=== PATIENT | male | born 1940 | race Caucasian/White ===

== ENCOUNTER 2021-05-13 22:16 | Inpatient (IN) | payer MEDICARE, OTHER ==
[~2021-05-13] VITALS: Ht 188 cm; Wt 94.1 kg
[2021-05-13] MEDS ORDERED: GABA-282 PO (22:45)
[2021-05-13] MEDS ORDERED: FLOM0.4C39 PO (22:46)
[2021-05-13] MEDS ORDERED: LIDOCAINE 2% 5ML JELLY UROJET TOP ONE (23:05)
[2021-05-13 23:29] LABS: BASO % 0.4 % (0.0-1.0); EOS # 0.1 10^3/uL (0.0-0.5); EOS % 1.2 % (0.0-3.0); HEMATOCRIT 41.4 % (42.0-52.0); HEMOGLOBIN 14.1 g/dl (13.5-17.5); LYMPH # 1.4 10^3/uL (1.5-5.0); LYMPH % 13.2 % (24.0-44.0); MEAN CORPUSCULAR HGB CONC 34.1 g/dl (32.0-36.5); MEAN CORPUSCULAR VOLUME 93.9 fl (80.0-96.0); MONO # 0.9 10^3/uL (0.0-0.8); MONO % 8.4 % (2.0-8.0); NEUTROPHILS # 7.8 10^3/uL (1.5-8.5); NEUTROPHILS % 76.1 % (36.0-66.0); PLATELET COUNT, AUTOMATED 178 10^3/uL (150-450); RED BLOOD COUNT 4.41 10^6/uL (4.30-6.10); WHITE BLOOD COUNT 10.2 10^3/uL (4.0-10.0)
[2021-05-13 23:58] LABS: MB/CK RELATIVE INDEX 1.13 (< OR =4); TROPONIN I 0.04 NG/ML (< 0.10)
[2021-05-14 00:05] LABS: ALBUMIN 3.9 GM/DL (3.2-5.2); ALT/SGPT 38 U/L (12-78); BILIRUBIN,DIRECT 0.5 MG/DL (0.0-0.2); BILIRUBIN,TOTAL 4.6 MG/DL (0.2-1.0); BLOOD UREA NITROGEN 16 MG/DL (7-18); CALCIUM LEVEL 8.3 MG/DL (8.8-10.2); CARBON DIOXIDE LEVEL 30 MEQ/L (21-32); CHLORIDE LEVEL 100 MEQ/L (98-107); CREATININE FOR GFR 1.23 MG/DL (0.70-1.30); GLOMERULAR FILTRATION RATE > 60.0 (>35); GLUCOSE, FASTING 117 MG/DL (70-100); POTASSIUM SERUM 3.7 MEQ/L (3.5-5.1); SODIUM LEVEL 136 MEQ/L (136-145); TOTAL PROTEIN 6.7 GM/DL (6.4-8.2)
[2021-05-14 00:50] LABS: RSV AMPLIFICATION NEGATIVE (NEGATIVE)
[2021-05-14] MEDS ORDERED: PRESCAP PO (01:45)
[2021-05-14] MEDS ORDERED: POLYOPD OU (01:45)
[2021-05-14] MEDS ORDERED: HOME MED LIST COMPLETE! XX SCH (01:50)
[2021-05-14] MEDS ORDERED: ONDANSETRON 4MG/2ML VIAL IV ONE (02:00)
[2021-05-14] MEDS ORDERED: POLYVINYL ALCOHOL OPHTH SOLN 15 ML(LIQUITEARS) OU PRN (03:30)
[2021-05-14] MEDS ORDERED: MOM 30ML SUSPENSION UDC PO PRN (03:50)
[2021-05-14] MEDS: NS 1,000 ML IV SCH ×2 (04:39→13:22)
[2021-05-14] MEDS: ACETAMINOPHEN TAB 650MG DOSE (2X325MG) PO PRN (04:40)
[2021-05-14 05:35] VITALS: BP 147/79
[2021-05-14 07:12] LABS: HEMATOCRIT 39.4 % (42.0-52.0); HEMOGLOBIN 13.7 g/dl (13.5-17.5); MEAN CORPUSCULAR HEMOGLOBIN 32.9 pg (27.0-33.0); MEAN CORPUSCULAR HGB CONC 34.8 g/dl (32.0-36.5); MEAN CORPUSCULAR VOLUME 94.5 fl (80.0-96.0); PLATELET COUNT, AUTOMATED 182 10^3/uL (150-450); RED BLOOD COUNT 4.17 10^6/uL (4.30-6.10); WHITE BLOOD COUNT 10.3 10^3/uL (4.0-10.0)
[2021-05-14 07:42] LABS: ALBUMIN 3.8 GM/DL (3.2-5.2); ALT/SGPT 38 U/L (12-78); BILIRUBIN,TOTAL 5.1 MG/DL (0.2-1.0); BLOOD UREA NITROGEN 16 MG/DL (7-18); CALCIUM LEVEL 8.3 MG/DL (8.8-10.2); CARBON DIOXIDE LEVEL 29 MEQ/L (21-32); CHLORIDE LEVEL 101 MEQ/L (98-107); CREATININE FOR GFR 1.12 MG/DL (0.70-1.30); GLOMERULAR FILTRATION RATE > 60.0 (>35); GLUCOSE, FASTING 104 MG/DL (70-100); SODIUM LEVEL 136 MEQ/L (136-145); TOTAL PROTEIN 6.4 GM/DL (6.4-8.2)
[2021-05-14] MEDS: DOCUSATE SODIUM 100MG CAPSULE PO SCH ×2 (09:08→20:47)
[2021-05-14] MEDS: TAMSULOSIN 0.4 MG CAP PO SCH (09:08)
[2021-05-14 11:15] VITALS: BP_SYST 113; BP_SYST 116; BP_SYST 118; BP_DIAS 48; BP_DIAS 53; BP_DIAS 62
[2021-05-14 14:00] VITALS: BP 123/68
[2021-05-14 22:00] VITALS: BP 138/83
[2021-05-15] MEDS: ACETAMINOPHEN TAB 650MG DOSE (2X325MG) PO PRN ×2 (05:31→20:09)
[2021-05-15 05:57] VITALS: BP 169/81
[2021-05-15 06:58] LABS: HEMATOCRIT 37.9 % (42.0-52.0); MEAN CORPUSCULAR HEMOGLOBIN 32.4 pg (27.0-33.0); MEAN CORPUSCULAR HGB CONC 34.3 g/dl (32.0-36.5); MEAN CORPUSCULAR VOLUME 94.5 fl (80.0-96.0); PLATELET COUNT, AUTOMATED 181 10^3/uL (150-450); RED BLOOD COUNT 4.01 10^6/uL (4.30-6.10); WHITE BLOOD COUNT 9.4 10^3/uL (4.0-10.0)
[2021-05-15 07:34] LABS: ALBUMIN 3.6 GM/DL (3.2-5.2); BILIRUBIN,DIRECT 0.5 MG/DL (0.0-0.2); BILIRUBIN,TOTAL 5.2 MG/DL (0.2-1.0); TOTAL PROTEIN 6.2 GM/DL (6.4-8.2)
[2021-05-15] MEDS: TAMSULOSIN 0.4 MG CAP PO SCH (08:43)
[2021-05-15] MEDS: DOCUSATE SODIUM 100MG CAPSULE PO SCH ×2 (08:43→20:08)
[2021-05-15 14:00] VITALS: BP 166/87
[2021-05-15] MEDS: NS 1,000 ML IV SCH ×2 (16:14→20:09)
[2021-05-15] MEDS: ONDANSETRON 4MG/2ML VIAL IV PRN (16:14)
[2021-05-15 22:00] VITALS: BP 163/93
[2021-05-16 05:33] VITALS: BP 113/72
[2021-05-16 06:23] LABS: BASO % 0.3 % (0.0-1.0); EOS % 0.1 % (0.0-3.0); HEMOGLOBIN 13.2 g/dl (13.5-17.5); LYMPH # 0.8 10^3/uL (1.5-5.0); LYMPH % 8.5 % (24.0-44.0); MEAN CORPUSCULAR HGB CONC 33.8 g/dl (32.0-36.5); MEAN CORPUSCULAR VOLUME 94.7 fl (80.0-96.0); MONO # 0.8 10^3/uL (0.0-0.8); NEUTROPHILS # 7.4 10^3/uL (1.5-8.5); NEUTROPHILS % 81.4 % (36.0-66.0); PLATELET COUNT, AUTOMATED 178 10^3/uL (150-450); RED BLOOD COUNT 4.12 10^6/uL (4.30-6.10); WHITE BLOOD COUNT 9.1 10^3/uL (4.0-10.0)
[2021-05-16] MEDS: TAMSULOSIN 0.4 MG CAP PO SCH (09:00)
[2021-05-16] MEDS: DOCUSATE SODIUM 100MG CAPSULE PO SCH ×2 (09:00→20:40)
[2021-05-16 14:00] VITALS: BP 114/53
[2021-05-16] MEDS: ONDANSETRON 4MG/2ML VIAL IV PRN (15:27)
[2021-05-16] MEDS: NS 1,000 ML IV SCH ×2 (17:00→20:40)
[2021-05-16] MEDS: ACETAMINOPHEN TAB 650MG DOSE (2X325MG) PO PRN (20:40)
[2021-05-16 22:30] VITALS: BP 144/70
[2021-05-17 00:11] LABS: BASO % 0.4 % (0.0-1.0); EOS % 0.1 % (0.0-3.0); HEMATOCRIT 40.1 % (42.0-52.0); HEMOGLOBIN 13.7 g/dl (13.5-17.5); LYMPH # 2.1 10^3/uL (1.5-5.0); LYMPH % 20.3 % (24.0-44.0); MEAN CORPUSCULAR HEMOGLOBIN 32.7 pg (27.0-33.0); MEAN CORPUSCULAR HGB CONC 34.2 g/dl (32.0-36.5); MEAN CORPUSCULAR VOLUME 95.7 fl (80.0-96.0); MONO # 1.2 10^3/uL (0.0-0.8); MONO % 11.7 % (2.0-8.0); NEUTROPHILS # 6.7 10^3/uL (1.5-8.5); NEUTROPHILS % 66.3 % (36.0-66.0); PLATELET COUNT, AUTOMATED 195 10^3/uL (150-450); RED BLOOD COUNT 4.19 10^6/uL (4.30-6.10); WHITE BLOOD COUNT 10.1 10^3/uL (4.0-10.0)
[2021-05-17 00:25] LABS: ALBUMIN 3.4 GM/DL (3.2-5.2); ALT/SGPT 48 U/L (12-78); BILIRUBIN,TOTAL 4.5 MG/DL (0.2-1.0); BLOOD UREA NITROGEN 18 MG/DL (7-18); CALCIUM LEVEL 7.6 MG/DL (8.8-10.2); CARBON DIOXIDE LEVEL 30 MEQ/L (21-32); CHLORIDE LEVEL 95 MEQ/L (98-107); CREATININE FOR GFR 0.98 MG/DL (0.70-1.30); GLOMERULAR FILTRATION RATE > 60.0 (>35); GLUCOSE, FASTING 116 MG/DL (70-100); POTASSIUM SERUM 4.2 MEQ/L (3.5-5.1); SODIUM LEVEL 131 MEQ/L (136-145); TOTAL PROTEIN 6.2 GM/DL (6.4-8.2)
[2021-05-17] MEDS ORDERED: ONDANSETRON 4MG/2ML VIAL IV PRN (02:25)
[2021-05-17] MEDS ORDERED: IPRATROPIUM 0.5MG/ALBUTEROL 2.5MG INH SOL UD 3ML (DUONEB) NEB PRN (02:30)
[2021-05-17] MEDS ORDERED: guaiFENesin ER 600 MG TAB PO PRN (02:30)
[2021-05-17] MEDS: cefTRIAXone SOD 1 GM in D5W MINI-BAG PLUS 50 ML IV SCH (02:51)
[2021-05-17 02:52] LABS: NT-PRO BNP 1034 PG/ML (<450)
[2021-05-17] MEDS ORDERED: AZITHROMYCIN INJ 500 MG, VIAL MATE ADAPTER 1 EACH in NS 250 ML IV SCH (04:00)
[2021-05-17 05:55] LABS: ABG BASE EXCESS -1.6 (-2.0-2.0); ABG HCO3 24.8 MEQ/L (22.0-26.0); ABG O2 SATURATION 94.6 % (95.0-99.0); ABG PARTIAL PRESSURE CO2 48.4 mmHg (35.0-45.0); ABG PARTIAL PRESSURE O2 73.7 mmHg (75.0-100.0); ABG STANDARD HCO3 23.1 MEQ/L (22.0-26.0); ABG TOTAL CO2 26.3 MEQ/L (23.0-31.0); ABG pH (ARTERIAL) 7.328 UNITS (7.350-7.450)
[2021-05-17 06:00] VITALS: BP 140/90
[2021-05-17 06:21] LABS: BASO % 0.2 % (0.0-1.0); HEMATOCRIT 38.5 % (42.0-52.0); HEMOGLOBIN 13.1 g/dl (13.5-17.5); LYMPH # 1.5 10^3/uL (1.5-5.0); LYMPH % 12.9 % (24.0-44.0); MEAN CORPUSCULAR HEMOGLOBIN 32.2 pg (27.0-33.0); MEAN CORPUSCULAR VOLUME 94.6 fl (80.0-96.0); MONO # 1.3 10^3/uL (0.0-0.8); MONO % 11.4 % (2.0-8.0); NEUTROPHILS # 8.5 10^3/uL (1.5-8.5); PLATELET COUNT, AUTOMATED 195 10^3/uL (150-450); RED BLOOD COUNT 4.07 10^6/uL (4.30-6.10); WHITE BLOOD COUNT 11.3 10^3/uL (4.0-10.0)
[2021-05-17 06:57] LABS: BLOOD UREA NITROGEN 19 MG/DL (7-18); CALCIUM LEVEL 7.6 MG/DL (8.8-10.2); CARBON DIOXIDE LEVEL 31 MEQ/L (21-32); CHLORIDE LEVEL 94 MEQ/L (98-107); GLOMERULAR FILTRATION RATE > 60.0 (>35); GLUCOSE, FASTING 150 MG/DL (70-100); POTASSIUM SERUM 4.3 MEQ/L (3.5-5.1); SODIUM LEVEL 131 MEQ/L (136-145)
[2021-05-17] MEDS: TAMSULOSIN 0.4 MG CAP PO SCH ×2 (09:00→09:50)
[2021-05-17] MEDS: DOCUSATE SODIUM 100MG CAPSULE PO SCH ×3 (09:00→19:49)
[2021-05-17] MEDS: LACTOBACILLUS ACIDOPHILUS CAP (BACID) PO SCH ×2 (09:00→09:50)
[2021-05-17 11:31] LABS: HEPATITIS B CORE ANTIBODY IGM NEGATIVE (NEGATIVE); HEPATITIS B SURFACE ANTIGEN NEGATIVE (NEGATIVE); HEPATITIS C VIRUS ABY INDEX 0.1 INDEX (<0.8)
[2021-05-17 14:00] VITALS: BP 140/80
[2021-05-17] MEDS ORDERED: VANCOMYCIN HCL 1,000 MG, VIAL MATE ADAPTER 1 EACH in NS 250 ML IV SCH (16:30)
[2021-05-17] MEDS ORDERED: VANCOMYCIN HCL 1,000 MG, VIAL MATE ADAPTER 1 EACH in NS 250 ML IV ONE ×2 (18:00→19:00)
[2021-05-17] MEDS: dexameTHASONE 4 MG/ML 1ML VIAL (J1100 PER 1MG) IV SCH (18:58)
[2021-05-17] MEDS: NS 1,000 ML IV SCH (20:15)
[2021-05-17] MEDS: NS IV SCH (20:34)
[2021-05-17] MEDS: ACYCLOVIR IV SCH (20:34)
[2021-05-17 22:00] VITALS: BP 149/79
[2021-05-18] MEDS: dexameTHASONE 4 MG/ML 1ML VIAL (J1100 PER 1MG) IV SCH ×3 (02:36→18:43)
[2021-05-18] MEDS: cefTRIAXone SOD 1 GM in D5W MINI-BAG PLUS 50 ML IV SCH (02:36)
[2021-05-18] MEDS: NS IV SCH ×3 (03:40→20:01)
[2021-05-18] MEDS: ACYCLOVIR IV SCH ×3 (03:40→20:01)
[2021-05-18] MEDS: VANCOMYCIN HCL 750 MG, VIAL MATE ADAPTER 1 EACH in NS 250 ML IV SCH ×4 (05:06→18:43)
[2021-05-18 06:00] VITALS: BP 146/78
[2021-05-18 06:16] LABS: BASO % 0.1 % (0.0-1.0); HEMATOCRIT 37.8 % (42.0-52.0); HEMOGLOBIN 13.1 g/dl (13.5-17.5); LYMPH # 0.9 10^3/uL (1.5-5.0); LYMPH % 12.9 % (24.0-44.0); MEAN CORPUSCULAR HEMOGLOBIN 32.7 pg (27.0-33.0); MEAN CORPUSCULAR HGB CONC 34.7 g/dl (32.0-36.5); MEAN CORPUSCULAR VOLUME 94.3 fl (80.0-96.0); MONO # 0.6 10^3/uL (0.0-0.8); MONO % 7.5 % (2.0-8.0); NEUTROPHILS # 5.7 10^3/uL (1.5-8.5); NEUTROPHILS % 78.7 % (36.0-66.0); PLATELET COUNT, AUTOMATED 215 10^3/uL (150-450); RED BLOOD COUNT 4.01 10^6/uL (4.30-6.10); WHITE BLOOD COUNT 7.3 10^3/uL (4.0-10.0)
[2021-05-18] MEDS: NS 1,000 ML IV SCH (06:25)
[2021-05-18 06:49] LABS: ALBUMIN 3.1 GM/DL (3.2-5.2); ALT/SGPT 51 U/L (12-78); AMYLASE 54 U/L (25-115); BILIRUBIN,TOTAL 2.2 MG/DL (0.2-1.0); BLOOD UREA NITROGEN 19 MG/DL (7-18); C REACTIVE PROTEIN QUANTITATIV 0.79 MG/DL (0.00-0.30); CALCIUM LEVEL 7.6 MG/DL (8.8-10.2); CARBON DIOXIDE LEVEL 35 MEQ/L (21-32); CHLORIDE LEVEL 95 MEQ/L (98-107); CREATININE FOR GFR 0.85 MG/DL (0.70-1.30); GLOMERULAR FILTRATION RATE > 60.0 (>35); GLUCOSE, FASTING 145 MG/DL (70-100); LIPASE 256 U/L (73-393); POTASSIUM SERUM 4.6 MEQ/L (3.5-5.1); SODIUM LEVEL 131 MEQ/L (136-145)
[2021-05-18 08:14] LABS: INR 1.07; PROTHROMBIN TIME 14.4 SECONDS (12.7-14.5)
[2021-05-18] MEDS: DOCUSATE SODIUM 100MG CAPSULE PO SCH ×2 (09:00→20:01)
[2021-05-18] MEDS: LACTOBACILLUS ACIDOPHILUS CAP (BACID) PO SCH (09:00)
[2021-05-18] MEDS: TAMSULOSIN 0.4 MG CAP PO SCH (09:00)
[2021-05-18] MEDS ORDERED: LIDOCAINE 1% MDV 20ML VIAL As Ordered ONE (14:06)
[2021-05-18] MEDS ORDERED: FUROSEMIDE 100MG/10ML VIAL (J1940) IV ONE (14:45)
[2021-05-18 15:11] LABS: ABG BASE EXCESS 6.5 (-2.0-2.0); ABG HCO3 33.7 MEQ/L (22.0-26.0); ABG O2 SATURATION 99.2 % (95.0-99.0); ABG PARTIAL PRESSURE CO2 59.2 mmHg (35.0-45.0); ABG PARTIAL PRESSURE O2 181.1 mmHg (75.0-100.0); ABG STANDARD HCO3 30.4 MEQ/L (22.0-26.0); ABG TOTAL CO2 35.5 MEQ/L (23.0-31.0); ABG pH (ARTERIAL) 7.373 UNITS (7.350-7.450)
[2021-05-18 15:33] LABS: CK-MB VALUE MASS 1.9 NG/ML (<3.6); MB/CK RELATIVE INDEX 2.29 (< OR =4); TROPONIN I 0.56 NG/ML (< 0.10)
[2021-05-18 16:00] VITALS: BP 174/84
[2021-05-18] MEDS ORDERED: SLF 3 ML SYR IV PRN (17:10)
[2021-05-18 17:30] VITALS: BP 158/79
[2021-05-18 18:14] LABS: APPEARANCE, CSF CLEAR (CLEAR); COLOR, CSF COLORLESS (COLORLESS); CSF TUBE# CELL CNT TUBE 3; CSF TUBE# GLU TUBE 2; CSF TUBE# TP TUBE 2; GLUCOSE CSF 80 MG/DL (40-75); TOTAL PROTEIN,CSF 68 MG/DL (15-45)
[2021-05-18] MEDS ORDERED: GLUCAGON INJ 1MG VIAL SC PRN (18:15)
[2021-05-18] MEDS ORDERED: GLUCOSE 4GM CHEW TABLET PO PRN (18:15)
[2021-05-18] MEDS ORDERED: DEXTROSE 50% 50 ML SYRINGE IV PRN (18:15)
[2021-05-18 20:00] VITALS: BP 123/65
[2021-05-18] MEDS: SLF 3 ML SYR IV SCH (20:01)
[2021-05-19] VITALS (7 sets, daily range): BP systolic 123–153; BP diastolic 60–73
[2021-05-19] MEDS: VANCOMYCIN HCL 750 MG, VIAL MATE ADAPTER 1 EACH in NS 250 ML IV SCH ×2 (00:34→12:54)
[2021-05-19] MEDS: D5W/0.45% SODIUM CHLORIDE 1,000 ML IV SCH (00:35)
[2021-05-19] MEDS: dexameTHASONE 4 MG/ML 1ML VIAL (J1100 PER 1MG) IV SCH ×3 (01:55→17:02)
[2021-05-19] MEDS ORDERED: VANCOMYCIN HCL 750 MG, VIAL MATE ADAPTER 1 EACH in NS 250 ML IV SCH (02:00)
[2021-05-19] MEDS: cefTRIAXone SOD 1 GM in D5W MINI-BAG PLUS 50 ML IV SCH (03:37)
[2021-05-19] MEDS: NS IV SCH ×3 (04:15→20:46)
[2021-05-19] MEDS: ACYCLOVIR IV SCH ×3 (04:15→20:46)
[2021-05-19] MEDS: SLF 3 ML SYR IV SCH ×3 (04:15→20:47)
[2021-05-19 05:51] LABS: BASO % 0.2 % (0.0-1.0); HEMATOCRIT 40.9 % (42.0-52.0); HEMOGLOBIN 14.1 g/dl (13.5-17.5); LYMPH # 1.1 10^3/uL (1.5-5.0); LYMPH % 11.1 % (24.0-44.0); MEAN CORPUSCULAR HEMOGLOBIN 32.1 pg (27.0-33.0); MEAN CORPUSCULAR HGB CONC 34.5 g/dl (32.0-36.5); MEAN CORPUSCULAR VOLUME 93.2 fl (80.0-96.0); MONO # 1.1 10^3/uL (0.0-0.8); MONO % 11.4 % (2.0-8.0); NEUTROPHILS # 7.6 10^3/uL (1.5-8.5); NEUTROPHILS % 76.3 % (36.0-66.0); PLATELET COUNT, AUTOMATED 311 10^3/uL (150-450); RED BLOOD COUNT 4.39 10^6/uL (4.30-6.10); WHITE BLOOD COUNT 9.9 10^3/uL (4.0-10.0)
[2021-05-19 06:10] LABS: BLOOD UREA NITROGEN 23 MG/DL (7-18); CARBON DIOXIDE LEVEL 38 MEQ/L (21-32); CHLORIDE LEVEL 91 MEQ/L (98-107); CREATININE FOR GFR 0.82 MG/DL (0.70-1.30); GLOMERULAR FILTRATION RATE > 60.0 (>35); GLUCOSE, FASTING 152 MG/DL (70-100); SODIUM LEVEL 133 MEQ/L (136-145)
[2021-05-19] MEDS ORDERED: BISACODYL 10 MG SUPP PR PRN (07:25)
[2021-05-19] MEDS ORDERED: ACETAMINOPHEN 650 MG SUPP PR PRN (07:25)
[2021-05-19] MEDS: FUROSEMIDE 40MG/4ML VIAL (J1940) IV SCH ×2 (09:07→17:03)
[2021-05-19 15:14] LABS: ABG BASE EXCESS 1.2 (-2.0-2.0); ABG HCO3 27.3 MEQ/L (22.0-26.0); ABG O2 SATURATION 96.6 % (95.0-99.0); ABG PARTIAL PRESSURE CO2 48.6 mmHg (35.0-45.0); ABG PARTIAL PRESSURE O2 88.2 mmHg (75.0-100.0); ABG STANDARD HCO3 25.5 MEQ/L (22.0-26.0); ABG TOTAL CO2 28.8 MEQ/L (23.0-31.0); ABG pH (ARTERIAL) 7.368 UNITS (7.350-7.450)
[2021-05-19 15:26] LABS: PROLACTIN 6.4 NG/ML (2.1-17.7)
[2021-05-19] MEDS ORDERED: LORazepam 2 MG/ML VIAL IV PRN (15:30)
[2021-05-19] MEDS ORDERED: LIDOCAINE 1% MDV 20ML VIAL As Ordered ONE (15:44)
[2021-05-19] MEDS: levETIRAcetam INJection 1,000 MG in D5W 100 ML IV SCH (17:02)
[2021-05-19 17:08] LABS: IgG P18 AB Absent (.); IgG P23 AB Absent (.); IgG P28 AB Present (.); IgG P30 AB Absent (.); IgG P39 AB Absent (.); IgG P41 AB Present (.); IgG P45 AB Absent (.); IgG P66 AB Absent (.); IgG P93 AB Present (.); IgM P23 AB Absent (.); IgM P39 AB Absent (.); IgM P41 AB Absent (.); LYME IgG WB INTERPRETATION Negative (.); LYME IgM WB INTERPRETATION Negative (.)
[2021-05-19] MEDS ORDERED: [UNRECOGNIZED DRUG - MIXTURE] IV SCH ×5 (18:00)
[2021-05-19] MEDS ORDERED: FAT EMULSION IV 250 ML IV SCH (18:00)
[2021-05-19] MEDS: SODIUM CHLORIDE 0.9% INJ 10 ML SYR IV SCH (18:57)
[2021-05-19] MEDS: HumaLOG INSULIN (NovoLOG) PER UNIT SC SCH (18:57)
[2021-05-19] MEDS ORDERED: PHENYTOIN INJection 1,000 MG in NS 100 ML IV STA (20:09)
[2021-05-19] MEDS ORDERED: PHENYTOIN INJection 1,000 MG in NS 100 ML IV ONE (21:00)
[2021-05-19] MEDS ORDERED: levETIRAcetam INJection 1,000 MG in D5W 100 ML IV SCH (22:15)
[2021-05-20] VITALS: BP 130/61
[2021-05-20] MEDS: HumaLOG INSULIN (NovoLOG) PER UNIT SC SCH ×3 (00:32→12:21)
[2021-05-20] MEDS: PHENYTOIN 100 MG/2 ML VIAL (J1165) IV SCH ×4 (00:33→21:46)
[2021-05-20] MEDS: D5W/0.45% SODIUM CHLORIDE 1,000 ML IV SCH (03:29)
[2021-05-20] MEDS: dexameTHASONE 4 MG/ML 1ML VIAL (J1100 PER 1MG) IV SCH ×3 (03:29→20:17)
[2021-05-20] MEDS: NS IV SCH ×3 (03:30→20:17)
[2021-05-20] MEDS: ACYCLOVIR IV SCH ×3 (03:30→20:17)
[2021-05-20 04:00] VITALS: BP 121/61
[2021-05-20 04:04] LABS: BASO % 0.1 % (0.0-1.0); HEMATOCRIT 41.3 % (42.0-52.0); HEMOGLOBIN 14.3 g/dl (13.5-17.5); LYMPH # 1.5 10^3/uL (1.5-5.0); LYMPH % 12.5 % (24.0-44.0); MEAN CORPUSCULAR HEMOGLOBIN 32.5 pg (27.0-33.0); MEAN CORPUSCULAR HGB CONC 34.6 g/dl (32.0-36.5); MEAN CORPUSCULAR VOLUME 93.9 fl (80.0-96.0); MONO # 1.5 10^3/uL (0.0-0.8); MONO % 12.6 % (2.0-8.0); NEUTROPHILS # 8.7 10^3/uL (1.5-8.5); NEUTROPHILS % 73.9 % (36.0-66.0); PLATELET COUNT, AUTOMATED 350 10^3/uL (150-450)
[2021-05-20 04:05] LABS: WHITE BLOOD COUNT 11.8 10^3/uL (4.0-10.0)
[2021-05-20 04:20] LABS: BLOOD UREA NITROGEN 28 MG/DL (7-18); CALCIUM LEVEL 8.1 MG/DL (8.8-10.2); CARBON DIOXIDE LEVEL 41 MEQ/L (21-32); CHLORIDE LEVEL 90 MEQ/L (98-107); CREATININE FOR GFR 0.98 MG/DL (0.70-1.30); GLOMERULAR FILTRATION RATE > 60.0 (>35); GLUCOSE, FASTING 155 MG/DL (70-100); POTASSIUM SERUM 3.3 MEQ/L (3.5-5.1); SODIUM LEVEL 134 MEQ/L (136-145)
[2021-05-20] MEDS: levETIRAcetam INJection 1,000 MG in D5W 100 ML IV SCH ×2 (05:42→17:49)
[2021-05-20] MEDS: SODIUM CHLORIDE 0.9% INJ 10 ML SYR IV SCH ×2 (05:44→19:38)
[2021-05-20] MEDS: SLF 3 ML SYR IV SCH ×3 (05:44→22:35)
[2021-05-20 07:46] VITALS: BP 110/57
[2021-05-20] MEDS: FUROSEMIDE 40MG/4ML VIAL (J1940) IV SCH (09:28)
[2021-05-20 11:55] VITALS: BP 114/56
[2021-05-20] MEDS: KCL 10MEQ/100ML SWI (KRUN) 10 MEQ in IV 1 EA IV SCH ×2 (12:22→13:36)
[2021-05-20 16:00] VITALS: BP 112/62
[2021-05-20 17:43] LABS: NT-PRO BNP 461 PG/ML (<450)
[2021-05-20] MEDS ORDERED: AMINO AC/ELECTROLYTE/DEX/CALC 2,000 ML, AMINO AC/ELECTROLYTE/DEX/CALC 1,000 ML IV SCH ×2 (18:00)
[2021-05-20] MEDS ORDERED: FAT EMULSION IV 250 ML IV SCH (18:00)
[2021-05-20 20:00] VITALS: BP 131/67
[2021-05-21] VITALS: BP 130/61
[2021-05-21] MEDS: HumaLOG INSULIN (NovoLOG) PER UNIT SC SCH ×5 (00:57→22:58)
[2021-05-21] MEDS: ACYCLOVIR IV SCH ×3 (03:25→20:47)
[2021-05-21] MEDS: NS IV SCH ×3 (03:25→20:47)
[2021-05-21 04:03] LABS: BASO % 0.2 % (0.0-1.0); HEMATOCRIT 41.1 % (42.0-52.0); HEMOGLOBIN 14.2 g/dl (13.5-17.5); LYMPH # 1.5 10^3/uL (1.5-5.0); LYMPH % 12.9 % (24.0-44.0); MEAN CORPUSCULAR HEMOGLOBIN 32.4 pg (27.0-33.0); MEAN CORPUSCULAR HGB CONC 34.5 g/dl (32.0-36.5); MEAN CORPUSCULAR VOLUME 93.8 fl (80.0-96.0); MONO # 1.2 10^3/uL (0.0-0.8); NEUTROPHILS # 8.7 10^3/uL (1.5-8.5); NEUTROPHILS % 75.9 % (36.0-66.0); PLATELET COUNT, AUTOMATED 334 10^3/uL (150-450); RED BLOOD COUNT 4.38 10^6/uL (4.30-6.10); WHITE BLOOD COUNT 11.5 10^3/uL (4.0-10.0)
[2021-05-21 04:25] LABS: BLOOD UREA NITROGEN 33 MG/DL (7-18); CALCIUM LEVEL 7.9 MG/DL (8.8-10.2); CARBON DIOXIDE LEVEL 38 MEQ/L (21-32); CHLORIDE LEVEL 92 MEQ/L (98-107); CREATININE FOR GFR 0.86 MG/DL (0.70-1.30); GLOMERULAR FILTRATION RATE > 60.0 (>35); GLUCOSE, FASTING 135 MG/DL (70-100); PHENYTOIN (DILANTIN) 6.4 UG/ML (10.0-20.0); POTASSIUM SERUM 3.5 MEQ/L (3.5-5.1); SODIUM LEVEL 134 MEQ/L (136-145)
[2021-05-21] MEDS: levETIRAcetam INJection 1,000 MG in D5W 100 ML IV SCH ×2 (05:06→17:42)
[2021-05-21] MEDS: SLF 3 ML SYR IV SCH ×3 (05:07→22:58)
[2021-05-21] MEDS: SODIUM CHLORIDE 0.9% INJ 10 ML SYR IV SCH ×2 (05:07→17:44)
[2021-05-21] MEDS: PHENYTOIN 100 MG/2 ML VIAL (J1165) IV SCH ×3 (05:08→22:57)
[2021-05-21 06:00] VITALS: BP 153/68
[2021-05-21 08:00] VITALS: BP 155/70
[2021-05-21] MEDS: dexameTHASONE 4 MG/ML 1ML VIAL (J1100 PER 1MG) IV SCH (09:19)
[2021-05-21 10:12] LABS: CRYPTOCOCCUS ANTIGEN CSF Negative (Negative)
[2021-05-21] MEDS: SODIUM CHLORIDE 0.9% INJ 10 ML SYR IV PRN (14:02)
[2021-05-21 16:00] VITALS: BP 120/58
[2021-05-21] MEDS ORDERED: FUROSEMIDE 20MG/2ML VIAL (J1940) IV SCH (17:00)
[2021-05-21] MEDS ORDERED: HumaLOG INSULIN (NovoLOG) PER UNIT SC SCH (18:00)
[2021-05-21] MEDS ORDERED: FAT EMULSION IV 250 ML IV SCH (18:00)
[2021-05-21] MEDS ORDERED: [UNRECOGNIZED DRUG - MIXTURE] IV SCH ×4 (18:00)
[2021-05-21 20:00] VITALS: BP 144/77
[2021-05-22] VITALS: BP 146/83
[2021-05-22] MEDS: NS IV SCH ×3 (03:45→21:10)
[2021-05-22] MEDS: ACYCLOVIR IV SCH ×3 (03:45→21:10)
[2021-05-22] MEDS: levETIRAcetam INJection 1,000 MG in D5W 100 ML IV SCH ×2 (04:51→17:13)
[2021-05-22 06:06] LABS: BASO % 0.2 % (0.0-1.0); EOS # 0.2 10^3/uL (0.0-0.5); EOS % 1.2 % (0.0-3.0); HEMATOCRIT 42.8 % (42.0-52.0); HEMOGLOBIN 14.7 g/dl (13.5-17.5); LYMPH # 1.6 10^3/uL (1.5-5.0); LYMPH % 12.4 % (24.0-44.0); MEAN CORPUSCULAR HEMOGLOBIN 32.2 pg (27.0-33.0); MEAN CORPUSCULAR HGB CONC 34.3 g/dl (32.0-36.5); MEAN CORPUSCULAR VOLUME 93.9 fl (80.0-96.0); MONO # 1.1 10^3/uL (0.0-0.8); MONO % 8.8 % (2.0-8.0); NEUTROPHILS # 9.8 10^3/uL (1.5-8.5); NEUTROPHILS % 75.4 % (36.0-66.0); PLATELET COUNT, AUTOMATED 325 10^3/uL (150-450); RED BLOOD COUNT 4.56 10^6/uL (4.30-6.10)
[2021-05-22] MEDS: HumaLOG INSULIN (NovoLOG) PER UNIT SC SCH ×4 (06:15→23:18)
[2021-05-22] MEDS: SODIUM CHLORIDE 0.9% INJ 10 ML SYR IV SCH ×2 (06:15→17:13)
[2021-05-22] MEDS: PHENYTOIN 100 MG/2 ML VIAL (J1165) IV SCH ×3 (06:15→23:09)
[2021-05-22] MEDS: SLF 3 ML SYR IV SCH ×3 (06:15→21:11)
[2021-05-22 06:28] LABS: BLOOD UREA NITROGEN 25 MG/DL (7-18); CARBON DIOXIDE LEVEL 35 MEQ/L (21-32); CHLORIDE LEVEL 92 MEQ/L (98-107); CREATININE FOR GFR 0.91 MG/DL (0.70-1.30); GLOMERULAR FILTRATION RATE > 60.0 (>35); GLUCOSE, FASTING 164 MG/DL (70-100); POTASSIUM SERUM 2.8 MEQ/L (3.5-5.1); SODIUM LEVEL 133 MEQ/L (136-145)
[2021-05-22 06:29] LABS: CALCIUM LEVEL 8.2 MG/DL (8.8-10.2)
[2021-05-22 07:28] VITALS: BP 139/84
[2021-05-22] MEDS ORDERED: POTASSIUM CHLORIDE 10MEQ SR TABLET PO ONE (09:00)
[2021-05-22] MEDS: KCL 10MEQ/100ML SWI (KRUN) 10 MEQ in IV 1 EA IV SCH ×3 (09:25→12:11)
[2021-05-22 11:24] VITALS: BP 159/77
[2021-05-22 15:36] VITALS: BP 167/85
[2021-05-22] MEDS ORDERED: INSULIN HUMAN REGULAR IV SCH (18:00)
[2021-05-22] MEDS ORDERED: CALC IV SCH (18:00)
[2021-05-22] MEDS ORDERED: AMINO AC IV SCH (18:00)
[2021-05-22] MEDS ORDERED: ELECTROLYTE IV SCH (18:00)
[2021-05-22] MEDS ORDERED: DEX IV SCH (18:00)
[2021-05-22] MEDS ORDERED: FAT EMULSION IV 250 ML IV SCH (18:00)
[2021-05-22 19:38] LABS: POTASSIUM SERUM 3.2 MEQ/L (3.5-5.1)
[2021-05-22 20:00] VITALS: BP 142/94
[2021-05-23] VITALS (7 sets, daily range): BP systolic 132–166; BP diastolic 80–101
[2021-05-23] MEDS: NS IV SCH ×3 (04:41→20:46)
[2021-05-23] MEDS: ACYCLOVIR IV SCH ×3 (04:41→20:46)
[2021-05-23] MEDS: levETIRAcetam INJection 1,000 MG in D5W 100 ML IV SCH ×2 (04:41→17:03)
[2021-05-23 04:54] LABS: BASO # 0.1 10^3/uL (0.0-0.2); BASO % 0.6 % (0.0-1.0); EOS # 0.2 10^3/uL (0.0-0.5); EOS % 0.9 % (0.0-3.0); LYMPH # 1.7 10^3/uL (1.5-5.0); MEAN CORPUSCULAR HEMOGLOBIN 32.7 pg (27.0-33.0); MEAN CORPUSCULAR HGB CONC 35.6 g/dl (32.0-36.5); MEAN CORPUSCULAR VOLUME 91.8 fl (80.0-96.0); MONO # 1.6 10^3/uL (0.0-0.8); MONO % 8.7 % (2.0-8.0); NEUTROPHILS # 14.2 10^3/uL (1.5-8.5); NEUTROPHILS % 76.5 % (36.0-66.0); PLATELET COUNT, AUTOMATED 343 10^3/uL (150-450)
[2021-05-23 05:13] LABS: BLOOD UREA NITROGEN 21 MG/DL (7-18); CALCIUM LEVEL 8.3 MG/DL (8.8-10.2); CARBON DIOXIDE LEVEL 28 MEQ/L (21-32); CHLORIDE LEVEL 94 MEQ/L (98-107); CREATININE FOR GFR 0.88 MG/DL (0.70-1.30); GLOMERULAR FILTRATION RATE > 60.0 (>35); GLUCOSE, FASTING 176 MG/DL (70-100); PHENYTOIN (DILANTIN) 7.6 UG/ML (10.0-20.0); POTASSIUM SERUM 3.4 MEQ/L (3.5-5.1); SODIUM LEVEL 133 MEQ/L (136-145)
[2021-05-23] MEDS: HumaLOG INSULIN (NovoLOG) PER UNIT SC SCH (05:19)
[2021-05-23 05:20] LABS: WHITE BLOOD COUNT 18.6 10^3/uL (4.0-10.0)
[2021-05-23] MEDS: SLF 3 ML SYR IV SCH ×2 (06:37→14:00)
[2021-05-23] MEDS: PHENYTOIN 100 MG/2 ML VIAL (J1165) IV SCH ×3 (06:38→23:20)
[2021-05-23] MEDS: SODIUM CHLORIDE 0.9% INJ 10 ML SYR IV SCH ×2 (06:38→17:03)
[2021-05-23] MEDS ORDERED: POTASSIUM CHLORIDE 10MEQ SR TABLET PO ONE (09:00)
[2021-05-23 11:28] LABS: ERYTHROCYTE SEDIMENTATION RATE 4 mm/hr (0-20)
[2021-05-23] MEDS ORDERED: NS 500 ML IV ONE (17:00)
[2021-05-24] VITALS: BP 126/67
[2021-05-24 04:00] VITALS: BP 126/80
[2021-05-24] MEDS: NS IV SCH ×3 (04:11→21:05)
[2021-05-24] MEDS: ACYCLOVIR IV SCH ×3 (04:11→21:05)
[2021-05-24] MEDS: levETIRAcetam INJection 1,000 MG in D5W 100 ML IV SCH ×2 (04:43→17:53)
[2021-05-24] MEDS: SODIUM CHLORIDE 0.9% INJ 10 ML SYR IV SCH ×2 (05:25→17:54)
[2021-05-24 05:42] LABS: HEMATOCRIT 42.3 % (42.0-52.0); HEMOGLOBIN 14.4 g/dl (13.5-17.5); MEAN CORPUSCULAR HEMOGLOBIN 32.4 pg (27.0-33.0); MEAN CORPUSCULAR VOLUME 95.1 fl (80.0-96.0); PLATELET COUNT, AUTOMATED 316 10^3/uL (150-450); RED BLOOD COUNT 4.45 10^6/uL (4.30-6.10)
[2021-05-24 06:05] LABS: CREATININE FOR GFR 1.36 MG/DL (0.70-1.30); GLOMERULAR FILTRATION RATE 53.5 (>35); POTASSIUM SERUM 4.2 MEQ/L (3.5-5.1); WHITE BLOOD COUNT 20.4 10^3/uL (4.0-10.0)
[2021-05-24 06:07] LABS: ATYPICAL LYMPH 3 % (0-5); EOSINOPHILS 1 % (0-3); LYMPHOCYTES 14 % (16-44); MONOCYTES 6 % (0-5); NEUTROPHILS 76 % (28-66); PLATELET ESTIMATE NORMAL (NORMAL)
[2021-05-24] MEDS ORDERED: NS 1,000 ML IV ONE (06:20)
[2021-05-24 07:21] LABS: C REACTIVE PROTEIN QUANTITATIV 8.76 MG/DL (0.00-0.30); PREALBUMIN 17.5 MG/DL (20.0-40.0)
[2021-05-24] MEDS: PHENYTOIN 100 MG/2 ML VIAL (J1165) IV SCH ×3 (07:41→23:49)
[2021-05-24 08:00] VITALS: BP 136/82
[2021-05-24] MEDS: NS 1,000 ML IV SCH ×2 (09:18→20:59)
[2021-05-24] MEDS: cefTRIAXone SOD 2 GM in D5W MINI-BAG PLUS 50 ML IV SCH (11:47)
[2021-05-24 16:00] VITALS: BP 145/82
[2021-05-24 18:17] LABS: BLOOD UREA NITROGEN 25 MG/DL (7-18); CARBON DIOXIDE LEVEL 31 MEQ/L (21-32); CHLORIDE LEVEL 104 MEQ/L (98-107); GLOMERULAR FILTRATION RATE > 60.0 (>35); GLUCOSE, FASTING 116 MG/DL (70-100); POTASSIUM SERUM 4.2 MEQ/L (3.5-5.1); SODIUM LEVEL 141 MEQ/L (136-145)
[2021-05-24 20:00] VITALS: BP 122/67
[2021-05-24] MEDS: TAMSULOSIN 0.4 MG CAP PO SCH (21:05)
[2021-05-24 22:38] LABS: BLOOD UREA NITROGEN 24 MG/DL (7-18); CALCIUM LEVEL 7.7 MG/DL (8.8-10.2); CARBON DIOXIDE LEVEL 31 MEQ/L (21-32); CHLORIDE LEVEL 104 MEQ/L (98-107); CREATININE FOR GFR 1.04 MG/DL (0.70-1.30); GLOMERULAR FILTRATION RATE > 60.0 (>35); GLUCOSE, FASTING 105 MG/DL (70-100); POTASSIUM SERUM 4.5 MEQ/L (3.5-5.1); SODIUM LEVEL 141 MEQ/L (136-145)
[2021-05-25 04:00] VITALS: BP 141/74
[2021-05-25 04:04] LABS: HEMATOCRIT 39.9 % (42.0-52.0); HEMOGLOBIN 13.4 g/dl (13.5-17.5); MEAN CORPUSCULAR HEMOGLOBIN 32.4 pg (27.0-33.0); MEAN CORPUSCULAR HGB CONC 33.6 g/dl (32.0-36.5); MEAN CORPUSCULAR VOLUME 96.6 fl (80.0-96.0); PLATELET COUNT, AUTOMATED 252 10^3/uL (150-450); RED BLOOD COUNT 4.13 10^6/uL (4.30-6.10); WHITE BLOOD COUNT 11.7 10^3/uL (4.0-10.0)
[2021-05-25] MEDS: NS IV SCH ×3 (04:06→20:53)
[2021-05-25] MEDS: ACYCLOVIR IV SCH ×3 (04:06→20:53)
[2021-05-25 04:18] LABS: BLOOD UREA NITROGEN 23 MG/DL (7-18); CALCIUM LEVEL 7.8 MG/DL (8.8-10.2); CARBON DIOXIDE LEVEL 32 MEQ/L (21-32); CHLORIDE LEVEL 105 MEQ/L (98-107); CREATININE FOR GFR 0.86 MG/DL (0.70-1.30); GLOMERULAR FILTRATION RATE > 60.0 (>35); GLUCOSE, FASTING 110 MG/DL (70-100); POTASSIUM SERUM 4.1 MEQ/L (3.5-5.1); SODIUM LEVEL 138 MEQ/L (136-145)
[2021-05-25 04:46] LABS: EOSINOPHILS 2 % (0-3); LYMPHOCYTES 19 % (16-44); METAMYELOCYTES 1 % (0-0); MONOCYTES 7 % (0-5); MYELOCYTES 2 % (0-0); NEUTROPHILS 69 % (28-66)
[2021-05-25 04:48] LABS: PLATELET ESTIMATE NORMAL (NORMAL)
[2021-05-25] MEDS: levETIRAcetam INJection 1,000 MG in D5W 100 ML IV SCH ×2 (05:30→17:53)
[2021-05-25] MEDS: SODIUM CHLORIDE 0.9% INJ 10 ML SYR IV SCH ×2 (05:35→17:54)
[2021-05-25] MEDS: PHENYTOIN 100 MG/2 ML VIAL (J1165) IV SCH ×3 (06:57→23:07)
[2021-05-25 08:11] VITALS: BP 149/72
[2021-05-25] MEDS: cefTRIAXone SOD 2 GM in D5W MINI-BAG PLUS 50 ML IV SCH (11:47)
[2021-05-25 18:09] VITALS: BP 149/70
[2021-05-25 20:00] VITALS: BP 135/70
[2021-05-25] MEDS: TAMSULOSIN 0.4 MG CAP PO SCH (20:53)
[2021-05-26] VITALS: BP 138/71
[2021-05-26 04:00] VITALS: BP 136/67
[2021-05-26] MEDS: NS IV SCH ×3 (04:54→20:51)
[2021-05-26] MEDS: ACYCLOVIR IV SCH ×3 (04:54→20:51)
[2021-05-26] MEDS: levETIRAcetam INJection 1,000 MG in D5W 100 ML IV SCH (04:55)
[2021-05-26] MEDS: PHENYTOIN 100 MG/2 ML VIAL (J1165) IV SCH ×3 (06:14→22:32)
[2021-05-26] MEDS: SODIUM CHLORIDE 0.9% INJ 10 ML SYR IV SCH ×2 (06:15→18:28)
[2021-05-26] MEDS: LevoFLOXacin 750 MG TABLET PO SCH (07:28)
[2021-05-26 07:37] VITALS: BP 148/74
[2021-05-26 11:21] LABS: BASO % 0.4 % (0.0-1.0); EOS # 0.4 10^3/uL (0.0-0.5); EOS % 3.9 % (0.0-3.0); HEMATOCRIT 37.2 % (42.0-52.0); HEMOGLOBIN 12.7 g/dl (13.5-17.5); LYMPH # 1.3 10^3/uL (1.5-5.0); LYMPH % 14.6 % (24.0-44.0); MEAN CORPUSCULAR HEMOGLOBIN 32.9 pg (27.0-33.0); MEAN CORPUSCULAR HGB CONC 34.1 g/dl (32.0-36.5); MEAN CORPUSCULAR VOLUME 96.4 fl (80.0-96.0); MONO % 10.5 % (2.0-8.0); NEUTROPHILS % 66.5 % (36.0-66.0); PLATELET COUNT, AUTOMATED 283 10^3/uL (150-450); RED BLOOD COUNT 3.86 10^6/uL (4.30-6.10); WHITE BLOOD COUNT 9.1 10^3/uL (4.0-10.0)
[2021-05-26 12:10] LABS: BLOOD UREA NITROGEN 20 MG/DL (7-18); CALCIUM LEVEL 8.3 MG/DL (8.8-10.2); CARBON DIOXIDE LEVEL 29 MEQ/L (21-32); CHLORIDE LEVEL 102 MEQ/L (98-107); CREATININE FOR GFR 0.83 MG/DL (0.70-1.30); GLOMERULAR FILTRATION RATE > 60.0 (>35); GLUCOSE, FASTING 116 MG/DL (70-100); POTASSIUM SERUM 3.5 MEQ/L (3.5-5.1); SODIUM LEVEL 137 MEQ/L (136-145)
[2021-05-26] MEDS: cefTRIAXone SOD 2 GM in D5W MINI-BAG PLUS 50 ML IV SCH (13:11)
[2021-05-26 14:00] VITALS: BP 118/52
[2021-05-26] MEDS: SODIUM CHLORIDE 0.9% INJ 10 ML SYR IV PRN (14:39)
[2021-05-26] MEDS: levETIRAcetam 250MG TABLET (KEPPRA) PO SCH (18:28)
[2021-05-26] MEDS: TAMSULOSIN 0.4 MG CAP PO SCH (20:51)
[2021-05-26 22:00] VITALS: BP 142/82
[2021-05-27] MEDS: ACYCLOVIR IV SCH ×2 (05:04→12:47)
[2021-05-27] MEDS: LevoFLOXacin 750 MG TABLET PO SCH (05:04)
[2021-05-27] MEDS: levETIRAcetam 250MG TABLET (KEPPRA) PO SCH ×2 (05:04→17:17)
[2021-05-27] MEDS: NS IV SCH ×2 (05:04→12:47)
[2021-05-27] MEDS: SODIUM CHLORIDE 0.9% INJ 10 ML SYR IV SCH ×2 (05:05→17:17)
[2021-05-27] MEDS: PHENYTOIN 100 MG/2 ML VIAL (J1165) IV SCH (06:13)
[2021-05-27 06:46] LABS: BASO # 0.1 10^3/uL (0.0-0.2); BASO % 0.6 % (0.0-1.0); EOS # 0.3 10^3/uL (0.0-0.5); EOS % 3.5 % (0.0-3.0); HEMATOCRIT 37.2 % (42.0-52.0); HEMOGLOBIN 12.6 g/dl (13.5-17.5); LYMPH # 1.4 10^3/uL (1.5-5.0); LYMPH % 18.2 % (24.0-44.0); MEAN CORPUSCULAR HEMOGLOBIN 32.3 pg (27.0-33.0); MEAN CORPUSCULAR HGB CONC 33.9 g/dl (32.0-36.5); MEAN CORPUSCULAR VOLUME 95.4 fl (80.0-96.0); MONO # 0.9 10^3/uL (0.0-0.8); MONO % 10.9 % (2.0-8.0); NEUTROPHILS # 4.9 10^3/uL (1.5-8.5); NEUTROPHILS % 63.1 % (36.0-66.0); PLATELET COUNT, AUTOMATED 306 10^3/uL (150-450); WHITE BLOOD COUNT 7.8 10^3/uL (4.0-10.0)
[2021-05-27 07:06] LABS: BLOOD UREA NITROGEN 17 MG/DL (7-18); CALCIUM LEVEL 8.1 MG/DL (8.8-10.2); CARBON DIOXIDE LEVEL 30 MEQ/L (21-32); CHLORIDE LEVEL 101 MEQ/L (98-107); CREATININE FOR GFR 0.92 MG/DL (0.70-1.30); GLOMERULAR FILTRATION RATE > 60.0 (>35); GLUCOSE, FASTING 99 MG/DL (70-100); POTASSIUM SERUM 3.4 MEQ/L (3.5-5.1); SODIUM LEVEL 136 MEQ/L (136-145)
[2021-05-27] MEDS ORDERED: POTASSIUM CHLORIDE 10MEQ SR TABLET PO ONE (07:45)
[2021-05-27] MEDS: cefTRIAXone SOD 2 GM in D5W MINI-BAG PLUS 50 ML IV SCH (12:47)
[2021-05-27 14:00] VITALS: BP 114/73
[2021-05-27] MEDS: SODIUM CHLORIDE 0.9% INJ 10 ML SYR IV PRN (14:03)
[2021-05-27 18:00] VITALS: BP 146/74
[2021-05-27] MEDS: TAMSULOSIN 0.4 MG CAP PO SCH (20:23)
[2021-05-27] MEDS: PHENYTOIN ER 100 MG CAP PO SCH (20:23)
[2021-05-27 22:00] VITALS: BP 140/77
[2021-05-28] MEDS: levETIRAcetam 250MG TABLET (KEPPRA) PO SCH ×2 (05:43→17:38)
[2021-05-28] MEDS: LevoFLOXacin 750 MG TABLET PO SCH (05:43)
[2021-05-28] MEDS: SODIUM CHLORIDE 0.9% INJ 10 ML SYR IV SCH ×2 (05:44→17:39)
[2021-05-28 06:00] VITALS: BP 142/77
[2021-05-28 06:27] LABS: BASO % 0.5 % (0.0-1.0); EOS # 0.2 10^3/uL (0.0-0.5); EOS % 2.3 % (0.0-3.0); HEMATOCRIT 40.5 % (42.0-52.0); HEMOGLOBIN 13.7 g/dl (13.5-17.5); LYMPH # 1.8 10^3/uL (1.5-5.0); LYMPH % 20.8 % (24.0-44.0); MEAN CORPUSCULAR HEMOGLOBIN 32.3 pg (27.0-33.0); MEAN CORPUSCULAR HGB CONC 33.8 g/dl (32.0-36.5); MEAN CORPUSCULAR VOLUME 95.5 fl (80.0-96.0); MONO % 11.5 % (2.0-8.0); NEUTROPHILS # 5.2 10^3/uL (1.5-8.5); NEUTROPHILS % 61.2 % (36.0-66.0); PLATELET COUNT, AUTOMATED 377 10^3/uL (150-450); RED BLOOD COUNT 4.24 10^6/uL (4.30-6.10); WHITE BLOOD COUNT 8.5 10^3/uL (4.0-10.0)
[2021-05-28 06:53] LABS: BLOOD UREA NITROGEN 16 MG/DL (7-18); CALCIUM LEVEL 8.4 MG/DL (8.8-10.2); CARBON DIOXIDE LEVEL 29 MEQ/L (21-32); CHLORIDE LEVEL 99 MEQ/L (98-107); GLOMERULAR FILTRATION RATE > 60.0 (>35); GLUCOSE, FASTING 92 MG/DL (70-100); POTASSIUM SERUM 3.8 MEQ/L (3.5-5.1); SODIUM LEVEL 137 MEQ/L (136-145)
[2021-05-28] MEDS: PHENYTOIN ER 100 MG CAP PO SCH ×2 (09:25→21:28)
[2021-05-28] MEDS: ACETAMINOPHEN TAB 650MG DOSE (2X325MG) PO PRN (09:26)
[2021-05-28] MEDS ORDERED: GI COCKTAIL 50ML BTL(HYOSCYAMINE/MAALOX/LIDOCAINE VISCOUS)(1:3:1) PO PRN (09:55)
[2021-05-28] MEDS: OMEPRAZOLE 20 MG CAP PO SCH (10:18)
[2021-05-28] MEDS: cefTRIAXone SOD 2 GM in D5W MINI-BAG PLUS 50 ML IV SCH (12:33)
[2021-05-28] MEDS: SODIUM CHLORIDE 0.9% INJ 10 ML SYR IV PRN (12:33)
[2021-05-28 14:00] VITALS: BP 119/67
[2021-05-28] MEDS: TAMSULOSIN 0.4 MG CAP PO SCH (21:28)
[2021-05-28 22:00] VITALS: BP 129/70
[2021-05-29 06:00] VITALS: BP 145/78
[2021-05-29] MEDS: LevoFLOXacin 750 MG TABLET PO SCH (06:19)
[2021-05-29] MEDS: levETIRAcetam 250MG TABLET (KEPPRA) PO SCH ×2 (06:19→18:49)
[2021-05-29] MEDS: SODIUM CHLORIDE 0.9% INJ 10 ML SYR IV SCH ×2 (06:20→18:49)
[2021-05-29] MEDS: OMEPRAZOLE 20 MG CAP PO SCH (08:42)
[2021-05-29] MEDS: PHENYTOIN ER 100 MG CAP PO SCH ×2 (08:43→21:40)
[2021-05-29] MEDS: cefTRIAXone SOD 2 GM in D5W MINI-BAG PLUS 50 ML IV SCH (13:13)
[2021-05-29 14:00] VITALS: BP 132/76
[2021-05-29] MEDS: TAMSULOSIN 0.4 MG CAP PO SCH (21:40)
[2021-05-29 22:00] VITALS: BP 126/78
[2021-05-30] MEDS: SODIUM CHLORIDE 0.9% INJ 10 ML SYR IV SCH ×2 (05:39→17:33)
[2021-05-30] MEDS: levETIRAcetam 250MG TABLET (KEPPRA) PO SCH ×2 (05:40→17:34)
[2021-05-30] MEDS: LevoFLOXacin 750 MG TABLET PO SCH (05:40)
[2021-05-30 06:00] VITALS: BP 133/77
[2021-05-30] MEDS: GABAPENTIN 300 MG CAP PO SCH ×2 (08:49→21:35)
[2021-05-30] MEDS: OMEPRAZOLE 20 MG CAP PO SCH (08:49)
[2021-05-30] MEDS: PHENYTOIN ER 100 MG CAP PO SCH ×2 (08:50→21:35)
[2021-05-30] MEDS: cefTRIAXone SOD 2 GM in D5W MINI-BAG PLUS 50 ML IV SCH (12:54)
[2021-05-30] MEDS: TAMSULOSIN 0.4 MG CAP PO SCH (21:35)
[2021-05-31] MEDS: levETIRAcetam 250MG TABLET (KEPPRA) PO SCH ×2 (05:36→18:47)
[2021-05-31] MEDS: LevoFLOXacin 750 MG TABLET PO SCH (05:36)
[2021-05-31 06:00] VITALS: BP 118/64
[2021-05-31 06:36] LABS: BASO # 0.1 10^3/uL (0.0-0.2); BASO % 1.1 % (0.0-1.0); EOS # 0.2 10^3/uL (0.0-0.5); EOS % 1.7 % (0.0-3.0); HEMATOCRIT 44.2 % (42.0-52.0); HEMOGLOBIN 14.8 g/dl (13.5-17.5); LYMPH # 2.4 10^3/uL (1.5-5.0); MEAN CORPUSCULAR HEMOGLOBIN 32.5 pg (27.0-33.0); MEAN CORPUSCULAR HGB CONC 33.5 g/dl (32.0-36.5); MEAN CORPUSCULAR VOLUME 97.1 fl (80.0-96.0); MONO # 0.9 10^3/uL (0.0-0.8); MONO % 8.3 % (2.0-8.0); NEUTROPHILS # 6.5 10^3/uL (1.5-8.5); NEUTROPHILS % 63.2 % (36.0-66.0); PLATELET COUNT, AUTOMATED 398 10^3/uL (150-450); RED BLOOD COUNT 4.55 10^6/uL (4.30-6.10); WHITE BLOOD COUNT 10.3 10^3/uL (4.0-10.0)
[2021-05-31 06:52] LABS: BLOOD UREA NITROGEN 18 MG/DL (7-18); CALCIUM LEVEL 8.9 MG/DL (8.8-10.2); CARBON DIOXIDE LEVEL 30 MEQ/L (21-32); CHLORIDE LEVEL 97 MEQ/L (98-107); GLOMERULAR FILTRATION RATE > 60.0 (>35); GLUCOSE, FASTING 103 MG/DL (70-100); POTASSIUM SERUM 3.9 MEQ/L (3.5-5.1); SODIUM LEVEL 135 MEQ/L (136-145)
[2021-05-31] MEDS: OMEPRAZOLE 20 MG CAP PO SCH (09:15)
[2021-05-31] MEDS: GABAPENTIN 300 MG CAP PO SCH ×2 (09:15→21:30)
[2021-05-31] MEDS: PHENYTOIN ER 100 MG CAP PO SCH ×2 (09:16→21:30)
[2021-05-31] MEDS: TAMSULOSIN 0.4 MG CAP PO SCH (21:30)
[2021-06-01] MEDS: LevoFLOXacin 750 MG TABLET PO SCH (05:36)
[2021-06-01] MEDS: levETIRAcetam 250MG TABLET (KEPPRA) PO SCH ×2 (05:37→18:09)
[2021-06-01 06:00] VITALS: BP 130/75
[2021-06-01] MEDS: GABAPENTIN 300 MG CAP PO SCH ×2 (08:34→20:29)
[2021-06-01] MEDS: PHENYTOIN ER 100 MG CAP PO SCH ×2 (08:34→20:30)
[2021-06-01] MEDS: OMEPRAZOLE 20 MG CAP PO SCH (08:34)
[2021-06-01] MEDS: HEPARIN SOD (PORCINE) 5000UNITS/ML 1ML VIAL/SYRINGE SQ SCH ×2 (14:16→21:27)
[2021-06-01] MEDS: ACETAMINOPHEN TAB 650MG DOSE (2X325MG) PO PRN (15:59)
[2021-06-01] MEDS: TAMSULOSIN 0.4 MG CAP PO SCH (20:29)
[2021-06-02] MEDS: HEPARIN SOD (PORCINE) 5000UNITS/ML 1ML VIAL/SYRINGE SQ SCH ×3 (05:44→21:43)
[2021-06-02] MEDS: levETIRAcetam 250MG TABLET (KEPPRA) PO SCH ×2 (05:45→18:11)
[2021-06-02 06:00] VITALS: BP 127/67
[2021-06-02 07:07] LABS: BASO # 0.1 10^3/uL (0.0-0.2); BASO % 0.7 % (0.0-1.0); EOS # 0.1 10^3/uL (0.0-0.5); EOS % 1.4 % (0.0-3.0); HEMOGLOBIN 15.3 g/dl (13.5-17.5); LYMPH % 23.5 % (24.0-44.0); MEAN CORPUSCULAR HEMOGLOBIN 32.8 pg (27.0-33.0); MEAN CORPUSCULAR VOLUME 96.4 fl (80.0-96.0); MONO # 0.7 10^3/uL (0.0-0.8); MONO % 8.5 % (2.0-8.0); NEUTROPHILS # 5.5 10^3/uL (1.5-8.5); NEUTROPHILS % 64.3 % (36.0-66.0); PLATELET COUNT, AUTOMATED 339 10^3/uL (150-450); RED BLOOD COUNT 4.67 10^6/uL (4.30-6.10); WHITE BLOOD COUNT 8.5 10^3/uL (4.0-10.0)
[2021-06-02 07:36] LABS: BLOOD UREA NITROGEN 21 MG/DL (7-18); CALCIUM LEVEL 8.7 MG/DL (8.8-10.2); CARBON DIOXIDE LEVEL 30 MEQ/L (21-32); CHLORIDE LEVEL 98 MEQ/L (98-107); CREATININE FOR GFR 0.99 MG/DL (0.70-1.30); GLOMERULAR FILTRATION RATE > 60.0 (>35); GLUCOSE, FASTING 106 MG/DL (70-100); POTASSIUM SERUM 4.3 MEQ/L (3.5-5.1); SODIUM LEVEL 136 MEQ/L (136-145)
[2021-06-02] MEDS: OMEPRAZOLE 20 MG CAP PO SCH (09:19)
[2021-06-02] MEDS: GABAPENTIN 300 MG CAP PO SCH ×2 (09:19→20:41)
[2021-06-02] MEDS: PHENYTOIN ER 100 MG CAP PO SCH ×2 (09:20→20:42)
[2021-06-02] MEDS: TAMSULOSIN 0.4 MG CAP PO SCH (20:41)
[2021-06-03] MEDS: levETIRAcetam 250MG TABLET (KEPPRA) PO SCH ×2 (05:23→18:42)
[2021-06-03] MEDS: HEPARIN SOD (PORCINE) 5000UNITS/ML 1ML VIAL/SYRINGE SQ SCH ×3 (05:23→21:38)
[2021-06-03 06:00] VITALS: BP 124/63
[2021-06-03] MEDS: OMEPRAZOLE 20 MG CAP PO SCH (09:54)
[2021-06-03] MEDS: PHENYTOIN ER 100 MG CAP PO SCH ×2 (09:54→20:55)
[2021-06-03] MEDS: GABAPENTIN 300 MG CAP PO SCH ×2 (09:54→20:55)
[2021-06-03] MEDS: ACETAMINOPHEN TAB 650MG DOSE (2X325MG) PO PRN (20:55)
[2021-06-03] MEDS: TAMSULOSIN 0.4 MG CAP PO SCH (20:55)
[2021-06-04] MEDS: levETIRAcetam 250MG TABLET (KEPPRA) PO SCH (05:36)
[2021-06-04] MEDS: HEPARIN SOD (PORCINE) 5000UNITS/ML 1ML VIAL/SYRINGE SQ SCH (05:36)
[2021-06-04 06:00] VITALS: BP 134/70
[2021-06-04] MEDS: PHENYTOIN ER 100 MG CAP PO SCH (08:42)
[2021-06-04] MEDS: GABAPENTIN 300 MG CAP PO SCH (08:43)
[2021-06-04] MEDS: OMEPRAZOLE 20 MG CAP PO SCH (08:43)
[2021-06-04] MEDS ORDERED: ACET1TAB55 PO (09:55)
[2021-06-04] MEDS ORDERED: BISA10SU PR (09:55)
[2021-06-04] MEDS ORDERED: OMEP-218 PO (09:55)
[2021-06-04] MEDS ORDERED: KEPP250T5 PO (09:55)
[2021-06-04] MEDS ORDERED: MUCI600T31 PO (09:55)
[2021-06-04] MEDS ORDERED: DILA100C PO (09:55)
[2021-06-04] MEDS ORDERED: GABA-282 PO (09:55)
== END 2021-06-04 10:32 | DRG 97 ==
LOC: M ED 22:16 → M ED INP 05-14 03:50 → M MSPAV 05-14 05:35 → OBSVTOIN 05-14 18:32 → M PCU 05-18 15:52 → M MSPAV 05-26 13:34
PROVIDERS: ADMIT Family Medicine; ATTEND Family Medicine
PROC: 009U3ZX Drainage of Spinal Canal, Percutaneous Approach, Diagnostic (ICD-10-PCS; 2021-05-18)
PROC: 02HV33Z Insertion of Infusion Device into Superior Vena Cava, Percutaneous Approach (ICD-10-PCS; principal; 2021-05-19 15:54)
PROC: 3E0436Z Introduction of Nutritional Substance into Central Vein, Percutaneous Approach (ICD-10-PCS; 2021-05-20)
DX: B00.4 Herpesviral encephalitis (principal); G93.41 Metabolic encephalopathy; R17 Unspecified jaundice; N17.9 Acute kidney failure, unspecified; T83.518A Infection and inflammatory reaction due to other urinary catheter, initial encounter; G62.9 Polyneuropathy, unspecified; N40.0 Benign prostatic hyperplasia without lower urinary tract symptoms; R56.9 Unspecified convulsions; B96.5 Pseudomonas (aeruginosa) (mallei) (pseudomallei) as the cause of diseases classified elsewhere; E87.6 Hypokalemia; E87.70 Fluid overload, unspecified; R55 Syncope and collapse; R31.9 Hematuria, unspecified; K29.70 Gastritis, unspecified, without bleeding; E78.5 Hyperlipidemia, unspecified; Z96.641 Presence of right artificial hip joint; Z90.49 Acquired absence of other specified parts of digestive tract; Z85.831 Personal history of malignant neoplasm of soft tissue; Z77.090 Contact with and (suspected) exposure to asbestos; Z20.822 Contact with and (suspected) exposure to COVID-19; Z79.899 Other long term (current) drug therapy

== ENCOUNTER 2021-07-19 08:28 | Inpatient (IN) | payer OTHER, MEDICARE ==
[2021-07-19] VITALS (53 sets, daily range): BP systolic 63–100; BP diastolic 40–63
[~2021-07-19] VITALS: Ht 188 cm; Wt 85.9 kg
[~2021-07-19 08:28] MED LIST: ACET1TAB55 PO; BISA10SU PR; DILA100C PO; FLOM0.4C39 PO; GABA-282 PO; KEPP250T5 PO; MUCI600T31 PO; OMEP-218 PO; POLYOPD OU; PRESCAP PO
[2021-07-19] MEDS: GABAPENTIN 300 MG CAP PO SCH ×2 (09:00→20:48)
[2021-07-19] MEDS ORDERED: PANTOPRAZOLE 40MG VIAL (C9113 PER 1) IV SCH (09:00)
[2021-07-19] MEDS ORDERED: levETIRAcetam 250MG TABLET (KEPPRA) PO SCH ×2 (09:00→21:00)
[2021-07-19] MEDS: TAMSULOSIN 0.4 MG CAP PO SCH (09:00)
[2021-07-19] MEDS ORDERED: PHENYTOIN ER 100 MG CAP PO SCH (09:00)
[2021-07-19] MEDS: OMEPRAZOLE 20 MG CAP PO SCH (09:00)
[2021-07-19] MEDS ORDERED: NOREPINEPHRINE BITARTRATE 8 MG in D5W 492 ML IV SCH ×3 (10:40→11:15)
[2021-07-19] MEDS ORDERED: NEUR300C PO (10:40)
[2021-07-19] MEDS ORDERED: KEPP250T5 PO ×2 (10:40)
[2021-07-19] MEDS ORDERED: QC A650T3 PO (10:40)
[2021-07-19] MEDS ORDERED: DOK1CAP4 PO (10:40)
[2021-07-19] MEDS ORDERED: PHEN100C PO (10:40)
[2021-07-19] MEDS ORDERED: NS 1,000 ML IV ONE (10:40)
[2021-07-19] MEDS ORDERED: DESI13CR2 TOP (10:40)
[2021-07-19] MEDS ORDERED: OMEP-218 PO (10:40)
[2021-07-19] MEDS ORDERED: HOME MED LIST COMPLETE! XX SCH (10:45)
[2021-07-19] MEDS ORDERED: VANCOMYCIN HCL 1,000 MG, VIAL MATE ADAPTER 1 EACH in NS 250 ML IV SCH (10:50)
[2021-07-19] MEDS ORDERED: PIPERACILLIN/TAZOBACTAM SOD 4.5 GM in D5W MINI-BAG PLUS 50 ML IV SCH (10:50)
[2021-07-19] MEDS ORDERED: NOREPINEPHRINE 4 MG/4 ML AMP As Ordered ONE (10:52)
--- NOTE | 2021-07-19 10:59 | HPEPDOC ---
[facility] Medical History & Physical Date of Admission Jul 19, 2021 Date of Service: Jul 19, 2021 History and Physical CHIEF COMPLAINT: SEPSIS HISTORY OF PRESENT ILLNESS: 81yo male transferred to [facility] from [facility] for septic shock. Patient originally was sent to [facility] from Rehab for AMS. He was found to be unresponsive, febrile and hypotensive. Lab at [facility] were significant for WBC 33.9, creatinine 3.1, lactic acid 10.5, He was noted to have dark brown urine, UA=+UA 500 leukocyte esterase, TNTC WBC 3+ bacteria. He was made DNR/DNI at [facility] on discussion with his partner. He was last seen by her on Monday in his usual state of health. On arrival at [facility], he was deep asleep and snoring, unable to provide any information. 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 She states he does not use alcohol or illicit drugs. Unable to obtain any more information. Resides in: [facility] FAMILY HISTORY: Unable to obtain due patient's condition. ALLERGIES: Please see below. REVIEW OF SYSTEMS: Unable to obtain. HOME MEDICATIONS: Please see below. PHYSICAL EXAMINATION: Vital Signs: reviewed General: NAD, lying comfortably in bed, snoring HEENT: NC/AT, pupils equal and reactive, nasal cannula in place Neck: supple, no masses Chest: lungs CTA B/L Heart: +S1S2, RRR Abd: soft, NT, ND, +BS Ext: no edema, left femoral line in place Skin: no rashes MSK: full ROM at large joints Neuro: unable to assess Psych: unresponsive LABORATORY DATA: See below. MICROBIOLOGY: Please see below. A/P: 81 yo male sent from [facility] from septic shock, appears secondary to UTI. Originally sent from [facility] for AMS, fevers, tachycardia. Found to be febrile, hypotensive and unresponsive. #septic shock/UTI/severe sepsis - bandemia, lactic acidemia - Zosyn/Vancomycin - has history of pseudomonal UTI - IV fluids, levophed - titrate MAP >65 - telemetry monitoring - I/O's, menon catheter - UA and UCx at outside facility - UA was grossly positive - dark brown urine, UA=+UA 500 leukocyte esterase, TNTC WBC 3+ bacteria - labs at outside facility WBC 33.9, , lactic acid 10.5 - repeat labs pending #GRIS - labs at outside facility - creatinine 3.1 - secondary to UTI as above - repeat labs pending - check renal US #troponinemia - slight elevation in trops from labs at [facility] - continue to trend - discussed with cardiology - likely secondary to tachycardia/underlying septic shock #BPH/#obstructive reflux uropathy - as above, menon in place - continue flomax #seizure disorder - continue keppra/phenytoin - check levels #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 Home Medications Scheduled Aspirin (Aspirin EC) 81 Mg Tablet.dr, 81 MG PO QAM Docusate Sodium (Dok) 100 Mg Capsule, 200 MG PO DAILY Gabapentin (Neurontin) 300 Mg Capsule, 300 MG PO BID Levetiracetam (Keppra) 250 Mg Tablet, 250 MG PO QPM Levetiracetam (Keppra) 250 Mg Tablet, 500 MG PO QAM Levofloxacin (Levofloxacin) 750 Mg Tablet, 750 MG PO DAILY@0600 Omeprazole (Omeprazole) 20 Mg Capsule.dr, 20 MG PO DAILY Phenytoin Sodium Extended (Phenytoin Sodium Extended) 100 Mg Capsule, 200 MG PO BID Simvastatin (Simvastatin) 40 Mg Tablet, 40 MG PO DAILY Sulfamethoxazole/Trimethoprim (Sulfamethoxazole-Tmp Ds Tablet) 1 Each Tablet, 2 TAB PO BID Tamsulosin HCl (Flomax) 0.4 Mg Capsule, 0.4 MG PO DAILY Scheduled PRN Acetaminophen (Acetaminophen 8 Hour) 650 Mg Tablet.er, 650 MG PO Q6H PRN for PAIN LEVEL 1-4 Zinc Oxide (Desitin) 454 Gm Cream..g., 1 APLCT TOP TID PRN for REDNESS/IRRITATION BUTTOCK AREA Allergies Coded Allergies: No Known Allergies (Verified Allergy, Unknown, 05/13/21) A-FIB/CHADSVASC A-FIB History Current/History of A-Fib/PAF?: No GINGER TRUJILLO MD Jul 19, 2021 10:59
[2021-07-19 11:50] LABS: ALBUMIN 1.8 GM/DL (3.2-5.2); BILIRUBIN,TOTAL 1.6 MG/DL (0.2-1.0); CALCIUM LEVEL 6.9 MG/DL (8.8-10.2); CK-MB VALUE MASS 3.3 NG/ML (<3.6); CREATININE FOR GFR 2.67 MG/DL (0.70-1.30); GLOMERULAR FILTRATION RATE 24.6 (>35); MB/CK RELATIVE INDEX 1.71 (< OR =4); POTASSIUM SERUM 3.6 MEQ/L (3.5-5.1); TOTAL PROTEIN 4.6 GM/DL (6.4-8.2); TROPONIN I 0.74 NG/ML (< 0.10)
[2021-07-19] MEDS: NS 1,000 ML IV SCH ×2 (12:10→20:48)
[2021-07-19] MEDS ORDERED: VANCOMYCIN INTERMITTENT/PULSE DOSING BY CLINICAL PHARMACIST PER DOSING PROTOCOL XX SCH (12:30)
[2021-07-19] MEDS ORDERED: PIPERACILLIN/TAZOBACTAM SOD 3.375 GM in D5W MINI-BAG PLUS 50 ML IV SCH (13:00)
[2021-07-19] MEDS ORDERED: levETIRAcetam INJection 250 MG in D5W MINI-BAG PLUS 100 ML IV SCH (14:20)
[2021-07-19 15:55] LABS: HEMATOCRIT 37.4 % (42.0-52.0); HEMOGLOBIN 12.2 g/dl (13.5-17.5); MEAN CORPUSCULAR HEMOGLOBIN 32.9 pg (27.0-33.0); MEAN CORPUSCULAR HGB CONC 32.6 g/dl (32.0-36.5); MEAN CORPUSCULAR VOLUME 100.8 fl (80.0-96.0); PLATELET COUNT, AUTOMATED 282 10^3/uL (150-450); RED BLOOD COUNT 3.71 10^6/uL (4.30-6.10)
[2021-07-19 15:58] LABS: WHITE BLOOD COUNT 57.1 10^3/uL (4.0-10.0)
[2021-07-19 16:26] LABS: LYMPHOCYTES 3 % (16-44); METAMYELOCYTES 4 % (0-0); MONOCYTES 2 % (0-5); MYELOCYTES 2 % (0-0); NEUTROPHILS 72 % (28-66); PLATELET ESTIMATE NORMAL (NORMAL)
[2021-07-19 16:27] LABS: ANISOCYTOSIS 1+; TOXIC VACUOLATION 2+
[2021-07-19 16:38] LABS: CK-MB VALUE MASS 7.4 NG/ML (<3.6); MB/CK RELATIVE INDEX 3.39 (< OR =4); TROPONIN I 1.31 NG/ML (< 0.10)
[2021-07-19] MEDS: NOREPINEPHRINE BITARTRATE 8 MG in D5W 492 ML IV SCH (16:48)
--- NOTE | 2021-07-19 17:01 | REP ---
INDICATION: bob/septic shock - perform bedside. COMPARISON: Comparison CT study May 24, 2021. TECHNIQUE: Urinary tract sonography. FINDINGS: There is a Morton catheter in the urinary bladder and its retention balloon is seen. The bladder is empty. Renal cortical echogenicity pattern is normal and renal contours are smooth bilaterally. There is no evidence hydronephrosis on either side. There is a 1.8 cm cyst in the lateral aspect of the right kidney and a 2.1 cm cyst is seen medially in the left kidney. No mass is seen. No calculus is noted. The right kidney measures 11.8 x 5.3 x 6.2 cm. Left renal dimensions are 12.2 x 6.1 x 6.2 cm. IMPRESSION: Small renal cortical cysts. No hydronephrosis. <Electronically signed by Luis Licea > 07/19/21 [id number]
[2021-07-19] MEDS ORDERED: GLUCOSE 4GM CHEW TABLET PO PRN (17:25)
[2021-07-19] MEDS ORDERED: DEXTROSE 50% 50 ML SYRINGE IV PRN (17:25)
[2021-07-19] MEDS ORDERED: GLUCAGON INJ 1MG VIAL SC PRN (17:25)
[2021-07-19] MEDS: HumaLOG INSULIN (NovoLOG) PER UNIT SC SCH (18:30)
[2021-07-19] MEDS ORDERED: levETIRAcetam INJection 250 MG in D5W 100 ML IV SCH (21:00)
[2021-07-19] MEDS ORDERED: PHENYTOIN INJ 250 MG/5 ML VIAL (J1165) IV SCH (21:00)
[2021-07-19] MEDS: PIPERACILLIN/TAZOBACTAM SOD 3.375 GM in D5W MINI-BAG PLUS 50 ML IV SCH (22:13)
[2021-07-19 22:43] LABS: CK-MB VALUE MASS 13.4 NG/ML (<3.6); MB/CK RELATIVE INDEX 6.73 (< OR =4); TROPONIN I 2.02 NG/ML (< 0.10)
[2021-07-20] VITALS (71 sets, daily range): BP systolic 80–120; BP diastolic 47–70
[2021-07-20] MEDS: HumaLOG INSULIN (NovoLOG) PER UNIT SC SCH ×2 (00:04→05:38)
[2021-07-20] MEDS ORDERED: ASPIRIN 300 MG SUPP PR ONE (00:05)
[2021-07-20] MEDS: NOREPINEPHRINE BITARTRATE 8 MG in D5W 492 ML IV SCH ×2 (00:52→10:52)
[2021-07-20] MEDS: PIPERACILLIN/TAZOBACTAM SOD 3.375 GM in D5W MINI-BAG PLUS 50 ML IV SCH (05:08)
[2021-07-20] MEDS: NS 1,000 ML IV SCH ×4 (05:09→19:36)
[2021-07-20 05:47] LABS: CK-MB VALUE MASS 15.5 NG/ML (<3.6); MB/CK RELATIVE INDEX 10.4 (< OR =4); TROPONIN I 2.23 NG/ML (< 0.10)
--- NOTE | 2021-07-20 07:02 | IPNPDOC ---
Date Seen The patient was seen on 07/20/21. Progress Note Called by RN, critical value trop 2.02. shaked head when asked if having chest pain. Gave ASA 300 mg MD. D/w Dr. Alfaro. Likely demand ischemia in setting of septic shock. Presently on levophed, MAP is maintained. VS, I&O, 24H, Fishbone Vital Signs/I&O Vital Signs Date Time Temp Pulse Resp B/P (MAP) Pulse Ox O2 Delivery O2 Flow Rate FiO2 07/20/21 06:15 87 99/58 (72) 99 07/20/21 06:00 18 Nasal Cannula 2.0 07/20/21 04:00 97.1 I&O- Last 24 Hours up to 6 AM 07/20/21 06:00 Intake Total 2521 ml Output Total 3000 ml Balance -479 ml Laboratory Data 24H LABS Laboratory Tests 2 07/19/21 11:06: Anion Gap 13, Glomerular Filtration Rate 24.6L, Calcium Level 6.9L, Total Bilirubin 1.6H, Aspartate Amino Transf (AST/SGOT) 44H, Alanine Aminotransferase (ALT/SGPT) 49, Alkaline Phosphatase 91, Total Creatine Kinase 193, Creatine Kinase MB 3.3, Creatine Kinase MB Relative Index 1.71, Troponin I 0.74H, Total Protein 4.6L, Albumin 1.8L, Albumin/Globulin Ratio 0.6 07/19/21 11:49: Lactic Acid Level 7.6*H, Methicillin-Resist S.aureus DNA PCR DETECTEDA 07/19/21 15:37: Total Creatine Kinase 218, Creatine Kinase MB 7.4H, Creatine Kinase MB Relative Index 3.39, Troponin I 1.31#H, Neutrophils (%) (Auto) , Nucleated Red Blood Cells % (auto) 0.0, Neutrophils 72H, Band Neutrophils 17H, Lymphocytes (Manual) 3L, Monocytes (Manual) 2, Metamyelocytes 4H, Myelocytes 2H, Anisocytosis 1+, Toxic Vacuolation 2+, Platelet Estimate NORMAL, Phenytoin (Dilantin) Level 3.7L 07/19/21 16:31: Lactic Acid Followup at 4 Hours 7.0*H 07/19/21 17:12: Bedside Glucose (Misc Panel) 239H 07/19/21 21:51: Lactic Acid Level 5.4*H, Total Creatine Kinase 199, Creatine Kinase MB 13.4H, Creatine Kinase MB Relative Index 6.73H, Troponin I 2.02#*H 07/19/21 23:59: Bedside Glucose (Misc Panel) 162H 07/20/21 04:00: Total Creatine Kinase 149, Creatine Kinase MB 15.5H, Creatine Kinase MB Relative Index 10.40H, Troponin I 2.23*H, Lactic Acid Followup at 4 Hours 3.3*H 07/20/21 05:33: Bedside Glucose (Misc Panel) 117H 07/20/21 06:50: CBC/BMP Laboratory Tests 07/19/21 11:06 07/19/21 15:37 TAMICA BERNARD MD Jul 20, 2021 07:02
[2021-07-20 07:11] LABS: HEMOGLOBIN 10.9 g/dl (13.5-17.5); MEAN CORPUSCULAR HEMOGLOBIN 32.6 pg (27.0-33.0); MEAN CORPUSCULAR HGB CONC 34.1 g/dl (32.0-36.5); MEAN CORPUSCULAR VOLUME 95.8 fl (80.0-96.0); PLATELET COUNT, AUTOMATED 186 10^3/uL (150-450); RED BLOOD COUNT 3.34 10^6/uL (4.30-6.10)
[2021-07-20 07:24] LABS: WHITE BLOOD COUNT 36.5 10^3/uL (4.0-10.0)
[2021-07-20 07:36] LABS: ALBUMIN 1.8 GM/DL (3.2-5.2); ALT/SGPT 45 U/L (12-78); BILIRUBIN,TOTAL 0.8 MG/DL (0.2-1.0); BLOOD UREA NITROGEN 26 MG/DL (7-18); CALCIUM LEVEL 7.4 MG/DL (8.8-10.2); CARBON DIOXIDE LEVEL 21 MEQ/L (21-32); CHLORIDE LEVEL 110 MEQ/L (98-107); CREATININE FOR GFR 1.21 MG/DL (0.70-1.30); GLOMERULAR FILTRATION RATE > 60.0 (>35); GLUCOSE, FASTING 132 MG/DL (70-100); MAGNESIUM LEVEL 1.5 MG/DL (1.8-2.4); POTASSIUM SERUM 3.6 MEQ/L (3.5-5.1); SODIUM LEVEL 142 MEQ/L (136-145); TOTAL PROTEIN 4.3 GM/DL (6.4-8.2)
[2021-07-20] MEDS ORDERED: VANCOMYCIN HCL 1,000 MG, VIAL MATE ADAPTER 1 EACH in NS 250 ML IV ONE (08:00)
[2021-07-20] MEDS ORDERED: levETIRAcetam INJection 500 MG in D5W MINI-BAG PLUS 100 ML IV SCH (09:00)
[2021-07-20] MEDS: PIPERACILLIN/TAZOBACTAM SOD 4.5 GM in D5W MINI-BAG PLUS 50 ML IV SCH ×3 (10:31→21:40)
[2021-07-20] MEDS: MAG SULF 1GM/100ML (MAG RUN) 1 GM in IV 1 EA IV SCH ×2 (10:33→11:58)
[2021-07-20] MEDS: PHENYTOIN ER 100 MG CAP PO SCH ×2 (10:33→20:50)
[2021-07-20] MEDS: GABAPENTIN 300 MG CAP PO SCH ×2 (10:34→20:49)
[2021-07-20] MEDS: levETIRAcetam 250MG TABLET (KEPPRA) PO SCH ×2 (10:35→20:49)
[2021-07-20] MEDS: OMEPRAZOLE 20 MG CAP PO SCH (10:35)
[2021-07-20] MEDS: TAMSULOSIN 0.4 MG CAP PO SCH (10:44)
[2021-07-20] MEDS ORDERED: NS 500 ML IV ONE (12:55)
[2021-07-20] MEDS ORDERED: VANCOMYCIN HCL 1,000 MG, VIAL MATE ADAPTER 1 EACH in NS 250 ML IV SCH (14:00)
--- NOTE | 2021-07-20 16:29 | IPNPDOC ---
Subjective Date Seen The patient was seen on 07/20/21. Subjective Chief Complaint/HPI Mr. 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 Of note, urine culture was sent at [facility]. Patient was seen this morning, his Levophed was being weaned down. He denies any chest pain or worsening shortness of breath. He does have diarrhea, and his GI panel was negative Objective Physical Examination General Exam: Positive: Alert, Cooperative Eye Exam: Negative: Sclera icteric ENT Exam: Positive: Atraumatic Neck Exam: Positive: Supple Chest Exam: Positive: Clear to auscultation Heart Exam: Positive: Tachycardic, Regular Rhythm Abdomen Exam: Positive: Normal bowel sounds, Soft; Negative: Tenderness Extremity Exam: Negative: Edema Psych Exam: Positive: Mental status NL, Mood NL Assessment /Plan Assessment Mr. 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 This morning patient was on pressors which are being weaned down. Due to his history of Pseudomonas UTI, patient was put on Zosyn. Due to patient's septic shock and MRSA swab positive status, patient is also on vancomycin. Currently, we are pending urine culture results from [facility]. Plan/VTE VTE Prophylaxis Ordered?: Yes Plan 1. Septic shock secondary to UTI UA at [facility] demonstrated dark brown urine, 500 leuk esterase, too numerous to count WBC, and 3+ bacteria Pending urine culture Due to history of pseudomonal UTI, patient currently on Zosyn and vancomycin day 1 Weaning Levophed as tolerated 2. GRIS Creatinine at [facility] was 3.1 Ultrasound renal negative for hydronephrosis Most likely secondary to septic shock Supportive care and avoid nephrotoxic agents Renal function almost at baseline 3. NSTEMI secondary to demand ischemia and shock Troponin increased from 0.7 to a peak of 2.23. Now has down trended to 1.61 Nighttime provider spoke with Dr. Alfaro. Gave aspirin 300 mg per rectally. L ikely demand ischemia in setting of septic shock Supportive care 4. BPH/obstructive reflux uropathy Per nurse, patient has chronic Morton and chronic Morton was changed due to UTI We will hold tamsulosin due to shock 5. Seizure disorder Continue Keppra and phenytoin 6. GERD Continue omeprazole 7. Diarrhea Unknown etiology GI panel negative Okay for Imodium if patient desires Hold Colace 8. DVT prophylaxis Teds Disposition: Pending urine culture results and improvement in blood pressure VS, I&O, 24H, Fishbone Vital Signs/I&O Vital Signs Date Time Temp Pulse Resp B/P (MAP) Pulse Ox O2 Delivery O2 Flow Rate FiO2 07/20/21 15:52 112 20 95/54 (68) 96 Room Air 07/20/21 12:00 2.0 07/20/21 11:15 97.2 I&O- Last 24 Hours up to 6 AM 07/20/21 06:00 Intake Total 2521 ml Output Total 3000 ml Balance -479 ml Laboratory Data 24H LABS Laboratory Tests 2 07/19/21 16:31: Lactic Acid Followup at 4 Hours 7.0*H 07/19/21 17:12: Bedside Glucose (Misc Panel) 239H 07/19/21 21:51: Lactic Acid Level 5.4*H, Total Creatine Kinase 199, Creatine Kinase MB 13.4H, Creatine Kinase MB Relative Index 6.73H, Troponin I 2.02#*H 07/19/21 23:59: Bedside Glucose (Misc Panel) 162H 07/20/21 04:00: Lactic Acid Followup at 4 Hours 3.3*H, Total Creatine Kinase 149, Creatine Kinase MB 15.5H, Creatine Kinase MB Relative Index 10.40H, Troponin I 2.23*H 07/20/21 05:33: Bedside Glucose (Misc Panel) 117H 07/20/21 06:50: Nucleated Red Blood Cells % (auto) 0.0, Differential Slide Review Report, Peripheral Blood Smear Path Consult PERIPHERAL SMEAR, Anion Gap 11, Glomerular Filtration Rate > 60.0, Calcium Level 7.4L, Magnesium Level 1.5L, Total Bilirubin 0.8, Aspartate Amino Transf (AST/SGOT) 42H, Alanine Aminotransferase (ALT/SGPT) 45, Alkaline Phosphatase 96, Total Protein 4.3L, Albumin 1.8L, Albumin/Globulin Ratio 0.7, Random Vancomycin Level 5.3 07/20/21 11:20: Troponin I 1.61#*H, Lactic Acid Level 4.2*H CBC/BMP Laboratory Tests 07/20/21 06:50 Microbiology Microbiology 07/20/21 Gastrointestinal Tract Panel (PCR) - Final, Complete BRIANNA LIM DO Jul 20, 2021 16:29
--- NOTE | 2021-07-20 16:55 | ECGEPIP ---
[facility] Test Date: 2021-07-19 Pat Name: JARRET CLAUDIO Department: Room: [place] [address] Gender: Male Reinstatement Clerk: Jewel Em RN : 1940 Requested By: TAMICA BERNARD Order Number: [id number] Reading MD: Ajay Montana Measurements Intervals [place] Rate: 91 P: 39 KS: 152 QRS: -42 QRSD: 128 T: 139 QT: 416 QTc: 511 Interpretive Statements Sinus rhythm with premature atrial complexes Left axis deviation, Probable left anterior fascicular block. Right bundle branch block Poor R wave progression. Nonspecific & RIGHT BUNDLE BRANCH BLOCK related ST-T abnormalities. PAC new compared with 05/13/2021. Electronically Signed on 07-20-2021 16:55:35 EDT by Ajay Montana
--- NOTE | 2021-07-20 17:03 | ECGEPIP ---
[facility] Test Date: 2021-07-20 Pat Name: JARRET CLAUDIO Department: Room: [place] [address] Gender: Male Experimental Worker: quintin : 1940 Requested By: BRIANNA Ivan Order Number: [id number] Reading MD: Ajay Montana Measurements Intervals [place] Rate: 148 P: FL: 104 QRS: -55 QRSD: 130 T: 111 QT: 306 QTc: 480 Interpretive Statements Critical Test Result: High HR Undetermined rhythm, Suspect atrial flutter. Right bundle branch block Left anterior fascicular block Bifascicular block Poor R wave progression. T wave abnormality, consider lateral ischemia Rhythm change and increased heart rate compared with 07/19/2021. Electronically Signed on 07-20-2021 17:03:32 EDT by Ajay Montana
[2021-07-20] MEDS: ACETAMINOPHEN 650MG ER TAB (TYLENOL ARTHRITIS) PO PRN (17:24)
[2021-07-20 17:39] LABS: HEMATOCRIT 31.7 % (42.0-52.0); HEMOGLOBIN 10.8 g/dl (13.5-17.5); MEAN CORPUSCULAR HEMOGLOBIN 32.4 pg (27.0-33.0); MEAN CORPUSCULAR HGB CONC 34.1 g/dl (32.0-36.5); MEAN CORPUSCULAR VOLUME 95.2 fl (80.0-96.0); PLATELET COUNT, AUTOMATED 149 10^3/uL (150-450); RED BLOOD COUNT 3.33 10^6/uL (4.30-6.10); WHITE BLOOD COUNT 22.6 10^3/uL (4.0-10.0)
[2021-07-20 18:06] LABS: BLOOD UREA NITROGEN 18 MG/DL (7-18); CALCIUM LEVEL 7.7 MG/DL (8.8-10.2); CARBON DIOXIDE LEVEL 22 MEQ/L (21-32); CHLORIDE LEVEL 107 MEQ/L (98-107); CREATININE FOR GFR 0.92 MG/DL (0.70-1.30); GLOMERULAR FILTRATION RATE > 60.0 (>35); GLUCOSE, FASTING 118 MG/DL (70-100); MAGNESIUM LEVEL 1.8 MG/DL (1.8-2.4); POTASSIUM SERUM 3.1 MEQ/L (3.5-5.1); SODIUM LEVEL 137 MEQ/L (136-145)
[2021-07-20] MEDS ORDERED: POTASSIUM CHLORIDE 10MEQ SR TABLET PO ONE (19:00)
[2021-07-20 21:45] LABS: ABG BASE EXCESS -4.4 (-2.0-2.0); ABG HCO3 18.1 MEQ/L (22.0-26.0); ABG O2 SATURATION 98.3 % (95.0-99.0); ABG PARTIAL PRESSURE CO2 25.5 mmHg (35.0-45.0); ABG PARTIAL PRESSURE O2 111.3 mmHg (75.0-100.0); ABG STANDARD HCO3 20.8 MEQ/L (22.0-26.0); ABG TOTAL CO2 18.8 MEQ/L (23.0-31.0); ABG pH (ARTERIAL) 7.468 UNITS (7.350-7.450)
--- NOTE | 2021-07-20 23:17 | REPVR ---
PROCEDURE INFORMATION: Exam: XR Chest Exam date and time: 07/20/21 (9:21pm) Age: 81 years old Clinical indication: SOB TECHNIQUE: Imaging protocol: XR of the chest Views: 1 view COMPARISON: CT CHEST of 05/24/21 Portable CXR of 05/23/21 FINDINGS: Comparison is made with chest studies done approx. 2 months ago. The patient is rotated to an COREAS position. Stable cardiomegaly. Bilateral streaky and patchy pulmonary opacities remain, predominately in the mid and upper lung zones. No dense consolidation. A few areas of mild pleural thickening are likely. Small right pleural effusion again seen (also seen on CT-CHEST scan of 05/24/21). No pneumothorax. IMPRESSION: Bilateral streaky and patchy opacities remain, with a similar appearance noted 2 months ago. Chronic underlying lung disease is likely. No dense consolidation. Small right pleural effusion. Electronically signed by: Fabienne Nunes On 07/20/2021 23:16:34 PM
[2021-07-21] VITALS (45 sets, daily range): BP systolic 92–142; BP diastolic 50–78
[2021-07-21] MEDS: PIPERACILLIN/TAZOBACTAM SOD 4.5 GM in D5W MINI-BAG PLUS 50 ML IV SCH ×4 (04:30→21:40)
[2021-07-21] MEDS: NS 1,000 ML IV SCH ×3 (04:36→23:57)
[2021-07-21] MEDS ORDERED: VANCOMYCIN HCL 1,000 MG, VIAL MATE ADAPTER 1 EACH in NS 250 ML IV SCH (06:00)
[2021-07-21 06:09] LABS: HEMATOCRIT 28.8 % (42.0-52.0); HEMOGLOBIN 10.1 g/dl (13.5-17.5); MEAN CORPUSCULAR HEMOGLOBIN 33.3 pg (27.0-33.0); MEAN CORPUSCULAR HGB CONC 35.1 g/dl (32.0-36.5); PLATELET COUNT, AUTOMATED 175 10^3/uL (150-450); RED BLOOD COUNT 3.03 10^6/uL (4.30-6.10); WHITE BLOOD COUNT 21.6 10^3/uL (4.0-10.0)
[2021-07-21 06:32] LABS: BLOOD UREA NITROGEN 14 MG/DL (7-18); CALCIUM LEVEL 7.5 MG/DL (8.8-10.2); CARBON DIOXIDE LEVEL 23 MEQ/L (21-32); CHLORIDE LEVEL 108 MEQ/L (98-107); CREATININE FOR GFR 0.83 MG/DL (0.70-1.30); GLOMERULAR FILTRATION RATE > 60.0 (>35); GLUCOSE, FASTING 143 MG/DL (70-100); POTASSIUM SERUM 3.3 MEQ/L (3.5-5.1); SODIUM LEVEL 136 MEQ/L (136-145)
[2021-07-21] MEDS ORDERED: NS 500 ML IV ONE (06:45)
[2021-07-21] MEDS ORDERED: POTASSIUM CHLORIDE 10MEQ SR TABLET PO ONE (07:00)
[2021-07-21 07:35] LABS: MAGNESIUM LEVEL 1.7 MG/DL (1.8-2.4)
[2021-07-21] MEDS: OMEPRAZOLE 20 MG CAP PO SCH (09:04)
[2021-07-21] MEDS: PHENYTOIN ER 100 MG CAP PO SCH ×2 (09:05→20:26)
[2021-07-21] MEDS: GABAPENTIN 300 MG CAP PO SCH ×2 (09:05→20:26)
[2021-07-21] MEDS: levETIRAcetam 250MG TABLET (KEPPRA) PO SCH ×2 (09:05→20:26)
[2021-07-21] MEDS: MAG SULF 1GM/100ML (MAG RUN) 1 GM in IV 1 EA IV SCH ×2 (10:42→11:41)
[2021-07-21] MEDS: NOREPINEPHRINE BITARTRATE 8 MG in D5W 492 ML IV SCH ×2 (11:10→20:15)
[2021-07-21] MEDS ORDERED: LEVALBUTEROL 1.25 MG/0.5 ML CONCENTRATE NEB INH PRN (11:50)
--- NOTE | 2021-07-21 14:09 | ECGEPIP ---
[facility] Test Date: 2021-07-21 Pat Name: JARRET CLAUDIO Department: Room: [place] [address] Gender: Male Chute Tender: HILARY : 1940 Requested By: BRIANNA Ivan Order Number: [id number] Reading MD: Ajay Montana Measurements Intervals [place] Rate: 116 P: 6 AK: 150 QRS: -47 QRSD: 130 T: 83 QT: 338 QTc: 469 Interpretive Statements Sinus tachycardia Right bundle branch block Left anterior fascicular block Bifascicular block Decreased heart rate and rhythm change compared with 07/20/2021. Electronically Signed on 07-21-2021 14:09:00 EDT by Ajay Montana
--- NOTE | 2021-07-21 14:41 | IPNPDOC ---
Subjective Date Seen The patient was seen on 07/21/21. Subjective Chief Complaint/HPI Mr. 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 Yesterday evening around 6 PM, patient was off of pressors but heart rate increased to the 130s. Patient may have had paroxysmal atrial tachycardia. Patient's heart rate 1 hour later return to the 100s but required Levophed to maintain blood pressure. Patient was seen this morning and he was on Levophed 3 mcg/min. He seemed mildly confused, but he knows he is in [facility] in the years 2020. Continue with current therapy. Decrease IV fluids as he has some crackles in his lungs and pitting edema. Objective Physical Examination General Exam: Positive: Alert, Cooperative Eye Exam: Negative: Sclera icteric ENT Exam: Positive: Atraumatic Neck Exam: Positive: Supple Chest Exam: Positive: Clear to auscultation Heart Exam: Positive: Tachycardic, Regular Rhythm Abdomen Exam: Positive: Normal bowel sounds, Soft; Negative: Tenderness Extremity Exam: Positive: Edema Psych Exam: Positive: Mood NL Assessment /Plan Assessment Mr. 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 This morning patient was on pressors which are being weaned down. Due to his history of Pseudomonas UTI, patient was put on Zosyn. Due to patient's septic shock and MRSA swab positive status, patient is also on vancomycin. Currently, we are pending urine culture results from [facility]. Plan/VTE VTE Prophylaxis Ordered?: Yes Plan 1. Septic shock secondary to UTI UA at [facility] demonstrated dark brown urine, 500 leuk esterase, too numerous to count WBC, and 3+ bacteria Pending urine culture Due to history of pseudomonal UTI, patient currently on Zosyn and vancomycin day 2 Weaning Levophed as tolerated 2. GRIS Creatinine at [facility] was 3.1 Ultrasound renal negative for hydronephrosis Most likely secondary to septic shock Supportive care and avoid nephrotoxic agents Renal function almost at baseline 3. NSTEMI secondary to demand ischemia and shock Troponin increased from 0.7 to a peak of 2.23. Now has down trended to 1.61 Nighttime provider spoke with Dr. Alfaro. Gave aspirin 300 mg per rectally. Likely demand ischemia in setting of septic shock Supportive care 4. BPH/obstructive reflux uropathy Per nurse, patient has chronic Morton and chronic Morton was changed due to UTI We will hold tamsulosin due to shock 5. Seizure disorder Continue Keppra and phenytoin 6. GERD Continue omeprazole 7. Diarrhea Unknown etiology GI panel negative Okay for Imodium if patient desires Hold Colace 8. DVT prophylaxis Teds Disposition: Pending urine culture results and improvement in blood pressure VS, I&O, 24H, Fishbone Vital Signs/I&O Vital Signs Date Time Temp Pulse Resp B/P (MAP) Pulse Ox O2 Delivery O2 Flow Rate FiO2 07/21/21 14:00 93 103/67 (79) 95 Room Air 07/21/21 12:00 98.5 28 07/21/21 04:37 0.0 I&O- Last 24 Hours up to 6 AM 07/21/21 06:00 Intake Total 5075 ml Output Total 2750 ml Balance 2325 ml Laboratory Data 24H LABS Laboratory Tests 2 07/20/21 17:11: Nucleated Red Blood Cells % (auto) 0.0, Urine Color YELLOW, Urine Appearance HAZY, Urine pH 5.0, Urine Specific [place] 1.012, Urine Protein NEGATIVE, Urine Glucose (UA) NEGATIVE, Urine Ketones NEGATIVE, Urine Blood 2+H, Urine Nitrite NEGATIVE, Urine Bilirubin NEGATIVE, Urine Urobilinogen 0.2, Urine Leukocyte Esterase 1+H, Urine WBC (Auto) 35H, Urine RBC (Auto) 4H, Urine Hyaline Casts (Auto) 0, Urine Bacteria (Auto) NEGATIVE, Urine Squamous Epithelial Cells 0, Urine Mucus (Auto) SMALL, Urine Sperm (Auto) , Anion Gap 8, Glomerular Filtration Rate > 60.0, Lactic Acid Followup at 4 Hours 3.8*H, Calcium Level 7.7L, Magnesium Level 1.8 07/20/21 21:33: Blood Gas Bicarbonate Standard 20.8L, Arterial Blood pH 7.468H, Arterial Blood Partial Pressure CO2 25.5L, Arterial Blood Partial Pressure O2 111.3H, Arterial Blood Total CO2 18.8L, Arterial Blood HCO3 18.1L, Arterial Blood Base Excess - 4.4L, Arterial Blood Oxygen Saturation 98.3 07/21/21 05:49: Nucleated Red Blood Cells % (auto) 0.0, Anion Gap 5L, Glomerular Filtration Rate > 60.0, Calcium Level 7.5L, Magnesium Level 1.7L 07/21/21 13:45: Random Vancomycin Level 11.3 CBC/BMP Laboratory Tests 07/20/21 17:11 07/21/21 05:49 Microbiology Microbiology 07/20/21 Blood Culture, Received Pending 07/20/21 Blood Culture, Received Pending 07/20/21 Urine Culture, Received Pending 07/20/21 Gastrointestinal Tract Panel (PCR) - Final, Complete BRIANNA LIM DO Jul 21, 2021 14:41
[2021-07-21] MEDS: VANCOMYCIN HCL 1,000 MG, VIAL MATE ADAPTER 1 EACH in NS 250 ML IV SCH (15:41)
[2021-07-22] VITALS (22 sets, daily range): BP systolic 96–138; BP diastolic 47–81; O2SAT 93
[2021-07-22] MEDS: NOREPINEPHRINE BITARTRATE 8 MG in D5W 492 ML IV SCH (03:03)
[2021-07-22] MEDS: VANCOMYCIN HCL 1,000 MG, VIAL MATE ADAPTER 1 EACH in NS 250 ML IV SCH ×2 (03:19→16:19)
[2021-07-22] MEDS: PIPERACILLIN/TAZOBACTAM SOD 4.5 GM in D5W MINI-BAG PLUS 50 ML IV SCH ×4 (04:39→21:19)
[2021-07-22 06:00] LABS: HEMATOCRIT 27.1 % (42.0-52.0); HEMOGLOBIN 9.4 g/dl (13.5-17.5); MEAN CORPUSCULAR HGB CONC 34.7 g/dl (32.0-36.5); MEAN CORPUSCULAR VOLUME 95.1 fl (80.0-96.0); PLATELET COUNT, AUTOMATED 172 10^3/uL (150-450); RED BLOOD COUNT 2.85 10^6/uL (4.30-6.10); WHITE BLOOD COUNT 13.9 10^3/uL (4.0-10.0)
[2021-07-22 06:25] LABS: BLOOD UREA NITROGEN 8 MG/DL (7-18); CALCIUM LEVEL 7.8 MG/DL (8.8-10.2); CARBON DIOXIDE LEVEL 26 MEQ/L (21-32); CHLORIDE LEVEL 105 MEQ/L (98-107); CREATININE FOR GFR 0.65 MG/DL (0.70-1.30); GLOMERULAR FILTRATION RATE > 60.0 (>35); GLUCOSE, FASTING 104 MG/DL (70-100); POTASSIUM SERUM 3.1 MEQ/L (3.5-5.1); SODIUM LEVEL 136 MEQ/L (136-145)
[2021-07-22] MEDS ORDERED: POTASSIUM CHLORIDE 10MEQ SR TABLET PO ONE (07:30)
[2021-07-22] MEDS: NS 1,000 ML IV SCH ×2 (07:31→20:24)
[2021-07-22] MEDS: levETIRAcetam 250MG TABLET (KEPPRA) PO SCH ×2 (08:09→20:23)
[2021-07-22] MEDS: GABAPENTIN 300 MG CAP PO SCH ×2 (08:09→20:24)
[2021-07-22] MEDS: OMEPRAZOLE 20 MG CAP PO SCH (08:09)
[2021-07-22] MEDS: PHENYTOIN ER 100 MG CAP PO SCH ×2 (08:09→21:19)
[2021-07-22 08:38] LABS: MAGNESIUM LEVEL 1.6 MG/DL (1.8-2.4)
[2021-07-22] MEDS: MAG SULF 1GM/100ML (MAG RUN) 1 GM in IV 1 EA IV SCH ×3 (11:13→13:38)
--- NOTE | 2021-07-22 12:56 | IPNPDOC ---
Subjective Date Seen The patient was seen on 07/22/21. Subjective Chief Complaint/HPI Mr. Teixeira is an 81-year-old male with history of recent HSV1 encephalitis complicated with seizures status post acyclovir and history of pseudomonal UTI who is here with septic shock secondary to UTI., Patient was weaned off of Levophed. This morning he is more alert. He is feeling better. Denies any chest pain or dyspnea. Patient ate most of his lunch and worked with physical therapy. Blood pressure has maintained off of Levophed. Urine culture from [facility] grew ESBL Klebsiella pneumonia. It is sensitive to Zosyn. We will also obtain culture results from [facility]. Objective Physical Examination General Exam: Positive: Alert, Cooperative Eye Exam: Negative: Sclera icteric ENT Exam: Positive: Atraumatic Neck Exam: Positive: Supple Chest Exam: Positive: Clear to auscultation Heart Exam: Positive: Rate Normal, Regular Rhythm Abdomen Exam: Positive: Normal bowel sounds, Soft; Negative: Tenderness Extremity Exam: Positive: Edema Psych Exam: Positive: Mood NL Assessment /Plan Assessment Mr. 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 This morning patient was on pressors which are being weaned down. Due to his history of Pseudomonas UTI, patient was put on Zosyn. Due to patient's septic shock and MRSA swab positive status, patient is also on vancomycin. Currently, we are pending urine culture results from [facility]. I requested [facility] to fax urine culture results. Her urine culture grew ESBL Klebsiella. Plan/VTE VTE Prophylaxis Ordered?: Yes Plan 1. Gram-negative septic shock secondary to ESBL Klebsiella UTI UA at [facility] demonstrated dark brown urine, 500 leuk esterase, too numerous to count WBC, and 3+ bacteria Pending urine culture from [facility]. Urine culture here grew ESBL Klebsiella Zosyn and vancomycin day 3 Weaned off of Levophed and blood pressure maintaining 2. GRIS Creatinine at [facility] was 3.1 Ultrasound renal negative for hydronephrosis Most likely secondary to septic shock Supportive care and avoid nephrotoxic agents Renal function at baseline 3. NSTEMI secondary to demand ischemia and shock Troponin increased from 0.7 to a peak of 2.23. Now has down trended to 1.61 Nighttime provider spoke with Dr. Alfaro. Gave aspirin 300 mg per rectally. Likely demand ischemia in setting of septic shock Supportive care 4. BPH/obstructive reflux uropathy Per nurse, patient has chronic Morton and chronic Morton was changed due to UTI We will hold tamsulosin due to shock 5. Seizure disorder Continue Keppra and phenytoin 6. GERD Continue omeprazole 7. Diarrhea Unknown etiology GI panel negative Okay for Imodium if patient desires Hold Colace 8. DVT prophylaxis Teds Disposition: Pending urine culture results from [facility] and PT and OT eval. VS, I&O, 24H, Fishbone Vital Signs/I&O Vital Signs Date Time Temp Pulse Resp B/P (MAP) Pulse Ox O2 Delivery O2 Flow Rate FiO2 07/22/21 12:00 98.5 94 26 113/74 (87) 97 Room Air 07/21/21 04:37 0.0 I&O- Last 24 Hours up to 6 AM 07/22/21 05:59 Intake Total 4230.9 ml Output Total 3500 ml Balance 730.9 ml Laboratory Data 24H LABS Laboratory Tests 2 07/21/21 13:45: Random Vancomycin Level 11.3 07/22/21 05:35: Nucleated Red Blood Cells % (auto) 0.0, Anion Gap 5L, Glomerular Filtration Rate > 60.0, Calcium Level 7.8L, Magnesium Level 1.6L CBC/BMP Laboratory Tests 07/22/21 05:35 Microbiology Microbiology 07/20/21 Blood Culture - Preliminary, Resulted No growth after 24 hours . All specim... 07/20/21 Blood Culture - Preliminary, Resulted 07/20/21 Urine Culture - Final, Complete Klebsiella Pneumoniae Esbl 07/20/21 Gastrointestinal Tract Panel (PCR) - Final, Complete BRIANNA LIM DO Jul 22, 2021 12:56
[2021-07-22] MEDS: VANCOMYCIN HCL 750 MG, VIAL MATE ADAPTER 1 EACH in NS 250 ML IV SCH (23:05)
[2021-07-23] MEDS: PIPERACILLIN/TAZOBACTAM SOD 4.5 GM in D5W MINI-BAG PLUS 50 ML IV SCH ×4 (04:20→21:25)
[2021-07-23 05:52] LABS: HEMATOCRIT 29.9 % (42.0-52.0); HEMOGLOBIN 10.3 g/dl (13.5-17.5); MEAN CORPUSCULAR HEMOGLOBIN 32.6 pg (27.0-33.0); MEAN CORPUSCULAR HGB CONC 34.4 g/dl (32.0-36.5); MEAN CORPUSCULAR VOLUME 94.6 fl (80.0-96.0); PLATELET COUNT, AUTOMATED 227 10^3/uL (150-450); RED BLOOD COUNT 3.16 10^6/uL (4.30-6.10); WHITE BLOOD COUNT 11.6 10^3/uL (4.0-10.0)
[2021-07-23 06:14] LABS: BLOOD UREA NITROGEN 6 MG/DL (7-18); CALCIUM LEVEL 7.7 MG/DL (8.8-10.2); CARBON DIOXIDE LEVEL 30 MEQ/L (21-32); CHLORIDE LEVEL 103 MEQ/L (98-107); CREATININE FOR GFR 0.66 MG/DL (0.70-1.30); GLOMERULAR FILTRATION RATE > 60.0 (>35); GLUCOSE, FASTING 106 MG/DL (70-100); POTASSIUM SERUM 3.2 MEQ/L (3.5-5.1); SODIUM LEVEL 139 MEQ/L (136-145)
[2021-07-23 06:26] VITALS: BP 128/74
[2021-07-23] MEDS: VANCOMYCIN HCL 750 MG, VIAL MATE ADAPTER 1 EACH in NS 250 ML IV SCH (06:46)
[2021-07-23] MEDS ORDERED: POTASSIUM CHLORIDE 10MEQ SR TABLET PO ONE (08:00)
[2021-07-23] MEDS: OMEPRAZOLE 20 MG CAP PO SCH (10:03)
[2021-07-23] MEDS: NS 1,000 ML IV SCH ×2 (10:04→21:26)
[2021-07-23] MEDS: levETIRAcetam 250MG TABLET (KEPPRA) PO SCH ×2 (10:05→21:26)
[2021-07-23] MEDS: ACETAMINOPHEN 650MG ER TAB (TYLENOL ARTHRITIS) PO PRN (10:05)
[2021-07-23] MEDS: GABAPENTIN 300 MG CAP PO SCH ×2 (10:05→21:26)
[2021-07-23] MEDS: PHENYTOIN ER 100 MG CAP PO SCH ×2 (10:06→21:26)
[2021-07-23 12:04] LABS: MAGNESIUM LEVEL 1.7 MG/DL (1.8-2.4)
--- NOTE | 2021-07-23 13:23 | IPNPDOC ---
Subjective Date Seen The patient was seen on 07/23/21. Subjective Chief Complaint/HPI Mr. 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 Patient was seen this morning. Appears more awake. Denies any chest pain or dyspnea. Cultures at [facility] grew Klebsiella and Proteus. Sensitivities have not returned. Objective Physical Examination General Exam: Positive: Alert, Cooperative Eye Exam: Negative: Sclera icteric ENT Exam: Positive: Atraumatic Neck Exam: Positive: Supple Chest Exam: Positive: Clear to auscultation Heart Exam: Positive: Rate Normal, Regular Rhythm Abdomen Exam: Positive: Normal bowel sounds, Soft; Negative: Tenderness Extremity Exam: Positive: Edema Psych Exam: Positive: Mood NL Assessment /Plan Assessment Mr. 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 This morning patient was on pressors which are being weaned down. Due to his history of Pseudomonas UTI, patient was put on Zosyn. Urine culture from [facility] grew ESBL Klebsiella Requested cultures from [facility]. Urine culture grew Proteus and Klebsiella, pending sensitivities Plan/VTE VTE Prophylaxis Ordered?: Yes Plan 1. Gram-negative septic shock secondary to ESBL Klebsiella UTI UA at [facility] demonstrated dark brown urine, 500 leuk esterase, too numerous to count WBC, and 3+ bacteria Urine culture at [facility] grew ESBL Klebsiella Urine culture from [facility] grew Proteus and Klebsiella. Pending sensitivities Zosyn day 4 Weaned off of Levophed and blood pressure maintaining 2. GRIS Creatinine at [facility] was 3.1 Ultrasound renal negative for hydronephrosis Most likely secondary to septic shock Supportive care and avoid nephrotoxic agents Renal function at baseline 3. NSTEMI secondary to demand ischemia and shock Troponin increased from 0.7 to a peak of 2.23. Now has down trended to 1.61 Nighttime provider spoke with Dr. Alfaro. Gave aspirin 300 mg per rectally. Likely demand ischemia in setting of septic shock Supportive care 4. BPH/obstructive reflux uropathy Per nurse, patient has chronic Morton and chronic Morton was changed due to UTI We will hold tamsulosin due to shock 5. Seizure disorder Continue Keppra and phenytoin 6. GERD Continue omeprazole 7. Diarrhea Unknown etiology GI panel negative Okay for Imodium if patient desires Hold Colace 8. DVT prophylaxis Teds and Lovenox Disposition: Pending sensitivities for Proteus from [facility] urine culture VS, I&O, 24H, Fishbone Vital Signs/I&O Vital Signs Date Time Temp Pulse Resp B/P (MAP) Pulse Ox O2 Delivery O2 Flow Rate FiO2 07/23/21 06:26 99.1 91 19 128/74 (92) 93 Room Air 07/21/21 04:37 0.0 I&O- Last 24 Hours up to 6 AM 07/23/21 06:00 Intake Total 2435 ml Output Total 1300 ml Balance 1135 ml Laboratory Data 24H LABS Laboratory Tests 2 07/22/21 14:54: Vancomycin Level Trough 10.2 07/23/21 05:33: Nucleated Red Blood Cells % (auto) 0.0, Anion Gap 6L, Glomerular Filtration Rate > 60.0, Calcium Level 7.7L, Magnesium Level 1.7L CBC/BMP Laboratory Tests 07/23/21 05:33 Microbiology Microbiology 07/20/21 Blood Culture - Preliminary, Resulted No Growth after 48 hours. All Specime... 07/20/21 Blood Culture - Final, Complete Staphylococcus Epidermidis 07/20/21 Urine Culture - Final, Complete Klebsiella Pneumoniae Esbl 07/20/21 Gastrointestinal Tract Panel (PCR) - Final, Complete BRIANNA LIM DO Jul 23, 2021 13:23
[2021-07-23 13:26] VITALS: O2SAT 96
[2021-07-23] MEDS: MAG SULF 1GM/100ML (MAG RUN) 1 GM in IV 1 EA IV SCH ×2 (13:48→14:57)
[2021-07-23] MEDS: ENOXAPARIN 40MG/0.4ML SYRINGE (J1650 PER 10MG) SC SCH (13:48)
[2021-07-23 14:00] VITALS: BP 102/60
[2021-07-23 16:51] LABS: INR 1.27; PROTHROMBIN TIME 16.3 SECONDS (12.7-14.5)
[2021-07-23 16:52] LABS: PARTIAL THROMBOPLASTIN TIME 39.1 SECONDS (25.9-37.0)
[2021-07-23 22:00] VITALS: BP 127/63
[2021-07-23 22:35] VITALS: O2SAT 94
[2021-07-24] MEDS: PIPERACILLIN/TAZOBACTAM SOD 4.5 GM in D5W MINI-BAG PLUS 50 ML IV SCH ×4 (04:07→22:16)
[2021-07-24 05:34] LABS: HEMATOCRIT 30.4 % (42.0-52.0); HEMOGLOBIN 10.4 g/dl (13.5-17.5); MEAN CORPUSCULAR HGB CONC 34.2 g/dl (32.0-36.5); MEAN CORPUSCULAR VOLUME 96.5 fl (80.0-96.0); PLATELET COUNT, AUTOMATED 249 10^3/uL (150-450); RED BLOOD COUNT 3.15 10^6/uL (4.30-6.10); WHITE BLOOD COUNT 9.7 10^3/uL (4.0-10.0)
[2021-07-24 06:00] VITALS: BP 114/58
[2021-07-24 06:08] LABS: BLOOD UREA NITROGEN 6 MG/DL (7-18); CALCIUM LEVEL 7.3 MG/DL (8.8-10.2); CARBON DIOXIDE LEVEL 32 MEQ/L (21-32); CHLORIDE LEVEL 102 MEQ/L (98-107); CREATININE FOR GFR 0.76 MG/DL (0.70-1.30); GLOMERULAR FILTRATION RATE > 60.0 (>35); GLUCOSE, FASTING 99 MG/DL (70-100); MAGNESIUM LEVEL 1.8 MG/DL (1.8-2.4); POTASSIUM SERUM 3.3 MEQ/L (3.5-5.1); SODIUM LEVEL 139 MEQ/L (136-145)
[2021-07-24 09:00] VITALS: O2SAT 92
[2021-07-24] MEDS: NS 1,000 ML IV SCH ×2 (09:26→22:17)
[2021-07-24] MEDS: GABAPENTIN 300 MG CAP PO SCH ×2 (09:26→22:16)
[2021-07-24] MEDS: ENOXAPARIN 40MG/0.4ML SYRINGE (J1650 PER 10MG) SC SCH (09:26)
[2021-07-24] MEDS: OMEPRAZOLE 20 MG CAP PO SCH (09:26)
[2021-07-24] MEDS: PHENYTOIN ER 100 MG CAP PO SCH ×2 (09:27→22:16)
[2021-07-24] MEDS: levETIRAcetam 250MG TABLET (KEPPRA) PO SCH ×2 (09:27→22:16)
[2021-07-24 14:00] VITALS: BP 112/66
--- NOTE | 2021-07-24 15:46 | IPNPDOC ---
Subjective Date Seen The patient was seen on 07/24/21. Subjective Chief Complaint/HPI Mr. 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 Patient was seen early this morning. Denies any chest pain or dyspnea. Says that his legs are numb, and have been numb for the past 2 weeks. Unclear what he means by numb. Denies pain and he is able to feel me touch his feet. We will try to obtain records from [facility] for more information. Objective Physical Examination General Exam: Positive: Alert, Cooperative Eye Exam: Negative: Sclera icteric ENT Exam: Positive: Atraumatic Neck Exam: Positive: Supple Chest Exam: Positive: Clear to auscultation Heart Exam: Positive: Rate Normal, Regular Rhythm Abdomen Exam: Positive: Normal bowel sounds, Soft; Negative: Tenderness Extremity Exam: Positive: Edema Neuro Exam: Positive: Other (Reports numb sensation, but is able to feel my hands on his legs) Psych Exam: Positive: Mood NL Assessment /Plan Assessment Mr. 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 This morning patient was on pressors which are being weaned down. Due to his history of Pseudomonas UTI, patient was put on Zosyn. Urine culture from [facility] grew ESBL Klebsiella Requested cultures from [facility]. [facility] urine culture grew Proteus and Klebsiella, pending sensitivities. Plan/VTE VTE Prophylaxis Ordered?: Yes Plan 1. Gram-negative septic shock secondary to ESBL Klebsiella UTI UA at [facility] demonstrated dark brown urine, 500 leuk esterase, too numerous to count WBC, and 3+ bacteria Urine culture at [facility] grew ESBL Klebsiella Urine culture from [facility] grew Proteus and Klebsiella. Pending sensitivities Zosyn day 5 Weaned off of Levophed and blood pressure maintaining 2. GRIS Creatinine at [facility] was 3.1 Ultrasound renal negative for hydronephrosis Most likely secondary to septic shock Supportive care and avoid nephrotoxic agents Renal function at baseline 3. NSTEMI secondary to demand ischemia and shock Troponin increased from 0.7 to a peak of 2.23. Now has down trended to 1.61 Nighttime provider spoke with Dr. Alfaro. Gave aspirin 300 mg per rectally. Likely demand ischemia in setting of septic shock Supportive care 4. BPH/obstructive reflux uropathy Per nurse, patient has chronic Morton and chronic Morton was changed due to UTI We will hold tamsulosin due to shock 5. Seizure disorder Continue Keppra and phenytoin 6. GERD Continue omeprazole 7. Diarrhea Unknown etiology GI panel negative Okay for Imodium if patient desires Hold Colace 8. DVT prophylaxis Teds and Lovenox Disposition: Pending sensitivities for Proteus from [facility] urine culture VS, I&O, 24H, Fishbone Vital Signs/I&O Vital Signs Date Time Temp Pulse Resp B/P (MAP) Pulse Ox O2 Delivery O2 Flow Rate FiO2 07/24/21 14:00 99.6 103 24 112/66 (81) 91 Room Air 07/21/21 04:37 0.0 I&O- Last 24 Hours up to 6 AM 07/24/21 05:59 Intake Total 2562 ml Output Total 5125 ml Balance -2563 ml Laboratory Data 24H LABS Laboratory Tests 2 07/23/21 16:11: Prothrombin Time 16.3H, Prothromb Time International Ratio 1.27, Activated Part ial Thromboplast Time 39.1H 07/24/21 05:27: Nucleated Red Blood Cells % (auto) 0.0, Anion Gap 5L, Glomerular Filtration Rate > 60.0, Calcium Level 7.3L, Magnesium Level 1.8 CBC/BMP Laboratory Tests 07/24/21 05:27 Microbiology Microbiology 07/20/21 Blood Culture - Preliminary, Resulted No Growth after 72 hours. All specime... 07/20/21 Blood Culture - Final, Complete Staphylococcus Epidermidis 07/20/21 Urine Culture - Final, Complete Klebsiella Pneumoniae Esbl 07/20/21 Gastrointestinal Tract Panel (PCR) - Final, Complete BRIANNA LIM DO Jul 24, 2021 15:45
[2021-07-24 21:27] VITALS: BP 144/70
[2021-07-25] MEDS: PIPERACILLIN/TAZOBACTAM SOD 4.5 GM in D5W MINI-BAG PLUS 50 ML IV SCH ×4 (03:39→21:33)
[2021-07-25 06:00] VITALS: BP 118/67
[2021-07-25 06:43] LABS: HEMATOCRIT 29.6 % (42.0-52.0); HEMOGLOBIN 10.1 g/dl (13.5-17.5); MEAN CORPUSCULAR HGB CONC 34.1 g/dl (32.0-36.5); MEAN CORPUSCULAR VOLUME 96.7 fl (80.0-96.0); PLATELET COUNT, AUTOMATED 241 10^3/uL (150-450); RED BLOOD COUNT 3.06 10^6/uL (4.30-6.10); WHITE BLOOD COUNT 8.1 10^3/uL (4.0-10.0)
[2021-07-25 07:08] LABS: BLOOD UREA NITROGEN 7 MG/DL (7-18); CALCIUM LEVEL 7.7 MG/DL (8.8-10.2); CARBON DIOXIDE LEVEL 33 MEQ/L (21-32); CHLORIDE LEVEL 102 MEQ/L (98-107); CREATININE FOR GFR 0.68 MG/DL (0.70-1.30); GLOMERULAR FILTRATION RATE > 60.0 (>35); GLUCOSE, FASTING 105 MG/DL (70-100); MAGNESIUM LEVEL 1.5 MG/DL (1.8-2.4); POTASSIUM SERUM 2.9 MEQ/L (3.5-5.1); SODIUM LEVEL 139 MEQ/L (136-145)
[2021-07-25] MEDS ORDERED: POTASSIUM CHLORIDE 10MEQ SR TABLET PO ONE (07:30)
[2021-07-25] MEDS: KCL 20MEQ IN D5/0.45NS 1000ML 1,000 ML IV SCH ×2 (07:39→21:33)
[2021-07-25] MEDS: MAG SULF 1GM/100ML (MAG RUN) 1 GM in IV 1 EA IV SCH ×4 (07:40→10:12)
[2021-07-25 08:00] VITALS: O2SAT 94
[2021-07-25] MEDS: GABAPENTIN 300 MG CAP PO SCH ×2 (08:45→21:33)
[2021-07-25] MEDS: PHENYTOIN ER 100 MG CAP PO SCH ×2 (08:45→21:32)
[2021-07-25] MEDS: OMEPRAZOLE 20 MG CAP PO SCH (08:45)
[2021-07-25] MEDS: ENOXAPARIN 40MG/0.4ML SYRINGE (J1650 PER 10MG) SC SCH (08:46)
[2021-07-25] MEDS: levETIRAcetam 250MG TABLET (KEPPRA) PO SCH ×2 (08:46→21:33)
[2021-07-25 14:00] VITALS: BP 147/79
[2021-07-25 14:28] LABS: BLOOD UREA NITROGEN 7 MG/DL (7-18); CALCIUM LEVEL 7.6 MG/DL (8.8-10.2); CARBON DIOXIDE LEVEL 31 MEQ/L (21-32); CHLORIDE LEVEL 101 MEQ/L (98-107); CREATININE FOR GFR 0.72 MG/DL (0.70-1.30); GLOMERULAR FILTRATION RATE > 60.0 (>35); GLUCOSE, FASTING 163 MG/DL (70-100); POTASSIUM SERUM 3.6 MEQ/L (3.5-5.1); SODIUM LEVEL 138 MEQ/L (136-145)
--- NOTE | 2021-07-25 15:57 | IPNPDOC ---
Subjective Date Seen The patient was seen on 07/25/21. Subjective Chief Complaint/HPI Mr. 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 Patient was seen earlier in the day. He feels about the same. Denies chest pain or dyspnea. Pending records from [facility]. Objective Physical Examination General Exam: Positive: Alert, Cooperative Eye Exam: Negative: Sclera icteric ENT Exam: Positive: Atraumatic Neck Exam: Positive: Supple Chest Exam: Positive: Clear to auscultation Heart Exam: Positive: Rate Normal, Regular Rhythm Abdomen Exam: Positive: Normal bowel sounds, Soft; Negative: Tenderness Extremity Exam: Positive: Edema Neuro Exam: Positive: Other (Reports numb sensation, but is able to feel my hands on his legs) Psych Exam: Positive: Mood NL Assessment /Plan Assessment Mr. 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 This morning patient was on pressors which are being weaned down. Due to his history of Pseudomonas UTI, patient was put on Zosyn. Urine culture from [facility] grew ESBL Klebsiella Requested cultures from [place]. [place] urine culture grew Proteus and Klebsiella, pending sensitivities. Patient reported numbness in legs for more than 2 weeks. Will try to obtain [facility] records for information of the numbness. Plan/VTE VTE Prophylaxis Ordered?: Yes Plan 1. Gram-negative septic shock secondary to ESBL Klebsiella UTI UA at [place] demonstrated dark brown urine, 500 leuk esterase, too numerous to count WBC, and 3+ bacteria Urine culture at [facility] grew ESBL Klebsiella Urine culture from [place] grew Proteus and Klebsiella. Pending sensitivities Zosyn day 6 Weaned off of Levophed and blood pressure maintaining 2. GRIS Creatinine at [place] was 3.1 Ultrasound renal negative for hydronephrosis Most likely secondary to septic shock Supportive care and avoid nephrotoxic agents Renal function at baseline 3. NSTEMI secondary to demand ischemia and shock Troponin increased from 0.7 to a peak of 2.23. Now has down trended to 1.61 Nighttime provider spoke with Dr. Alfaro. Gave aspirin 300 mg per rectally. Likely demand ischemia in setting of septic shock Supportive care 4. BPH/obstructive reflux uropathy Per nurse, patient has chronic Morton and chronic Morton was changed due to UTI We will hold tamsulosin due to shock 5. Seizure disorder Continue Keppra and phenytoin 6. GERD Continue omeprazole 7. Diarrhea Unknown etiology GI panel negative Okay for Imodium if patient desires Hold Colace 8. DVT prophylaxis Teds and Lovenox Disposition: Pending sensitivities for Proteus from [place] urine culture. Pending information from [facility]. VS, I&O, 24H, Fishbone Vital Signs/I&O Vital Signs Date Time Temp Pulse Resp B/P (MAP) Pulse Ox O2 Delivery O2 Flow Rate FiO2 07/25/21 14:00 99.4 91 22 147/79 (101) 94 Room Air 07/21/21 04:37 0.0 I&O- Last 24 Hours up to 6 AM 07/25/21 06:00 Intake Total 690 ml Output Total 3600 ml Balance -2910 ml Laboratory Data 24H LABS Laboratory Tests 2 07/25/21 06:07: Nucleated Red Blood Cells % (auto) 0.0, Anion Gap 4L, Glomerular Filtration Rate > 60.0, Calcium Level 7.7L, Magnesium Level 1.5L 07/25/21 13:49: Anion Gap 6L, Glomerular Filtration Rate > 60.0, Calcium Level 7.6L CBC/BMP Laboratory Tests 07/25/21 06:07 07/25/21 13:49 Microbiology Microbiology 07/20/21 Blood Culture - Preliminary, Resulted No Growth after 72 hours. All specime... 07/20/21 Blood Culture - Final, Complete Staphylococcus Epidermidis 07/20/21 Urine Culture - Final, Complete Klebsiella Pneumoniae Esbl 07/20/21 Gastrointestinal Tract Panel (PCR) - Final, Complete BRIANNA LIM DO Jul 25, 2021 15:57
[2021-07-25 22:00] VITALS: BP 131/76
[2021-07-26] MEDS: PIPERACILLIN/TAZOBACTAM SOD 4.5 GM in D5W MINI-BAG PLUS 50 ML IV SCH ×4 (03:37→21:30)
[2021-07-26] MEDS ORDERED: SODIUM CHLORIDE 0.9% INJ 10 ML SYR IV PRN (03:50)
[2021-07-26 05:54] LABS: HEMATOCRIT 31.2 % (42.0-52.0); HEMOGLOBIN 10.7 g/dl (13.5-17.5); MEAN CORPUSCULAR HEMOGLOBIN 33.1 pg (27.0-33.0); MEAN CORPUSCULAR HGB CONC 34.3 g/dl (32.0-36.5); MEAN CORPUSCULAR VOLUME 96.6 fl (80.0-96.0); PLATELET COUNT, AUTOMATED 285 10^3/uL (150-450); RED BLOOD COUNT 3.23 10^6/uL (4.30-6.10); WHITE BLOOD COUNT 9.2 10^3/uL (4.0-10.0)
[2021-07-26 06:00] VITALS: BP 132/78
[2021-07-26 06:24] LABS: MAGNESIUM LEVEL 1.7 MG/DL (1.8-2.4)
[2021-07-26 09:00] VITALS: O2SAT 93
[2021-07-26] MEDS: OMEPRAZOLE 20 MG CAP PO SCH (09:19)
[2021-07-26] MEDS: ENOXAPARIN 40MG/0.4ML SYRINGE (J1650 PER 10MG) SC SCH (09:19)
[2021-07-26] MEDS: levETIRAcetam 250MG TABLET (KEPPRA) PO SCH ×2 (09:20→21:30)
[2021-07-26] MEDS: KCL 20MEQ IN D5/0.45NS 1000ML 1,000 ML IV SCH (09:20)
[2021-07-26] MEDS: GABAPENTIN 300 MG CAP PO SCH ×2 (09:20→21:30)
[2021-07-26] MEDS: PHENYTOIN ER 100 MG CAP PO SCH ×2 (09:20→21:30)
[2021-07-26] MEDS: MAG SULF 1GM/100ML (MAG RUN) 1 GM in IV 1 EA IV SCH ×2 (09:21→10:43)
[2021-07-26 14:00] VITALS: BP 136/82
--- NOTE | 2021-07-26 15:52 | IPNPDOC ---
Subjective Date Seen The patient was seen on 07/26/21. Subjective Chief Complaint/HPI Mr. 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 Patient was seen earlier today. He denied any chest pain or shortness of breath. He did report burning sensation in his legs. When he said his legs felt numb, he may have be referring to neuropathy instead. We received urine culture sensitivities from [place]. [place] Klebsiella had similar sensitivities and grew 50,000 to 100,000. [facility] Klebsiella was only grew 6,000. [place] Proteus grew greater than 100,000. Both the Klebsiella and Proteus were sensitive to Zosyn. The Proteus is resistant to levofloxacin, but Klebsiella was sensitive to levofloxacin. Klebsiella was resistant to Bactrim, but Proteus is sensitive to Bactrim. Objective Physical Examination General Exam: Positive: Alert, Cooperative Eye Exam: Negative: Sclera icteric ENT Exam: Positive: Atraumatic Neck Exam: Positive: Supple Chest Exam: Positive: Clear to auscultation Heart Exam: Positive: Rate Normal, Regular Rhythm Abdomen Exam: Positive: Normal bowel sounds, Soft; Negative: Tenderness Extremity Exam: Positive: Edema Neuro Exam: Positive: Other (Reports numb sensation, but is able to feel my hands on his legs) Psych Exam: Positive: Mood NL Assessment /Plan Assessment Mr. 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 This morning patient was on pressors which are being weaned down. Due to his history of Pseudomonas UTI, patient was put on Zosyn. Urine culture from [facility] grew ESBL Klebsiella We received urine culture sensitivities from [place]. [place] Klebsiella had similar sensitivities and grew 50,000 to 100,000. [facility] Klebsiella was only grew 6,000. [place] Proteus grew greater than 100,000. Both the Klebsiella and Proteus were sensitive to Zosyn. The Proteus is resistant to levofloxacin, but Klebsiella was sensitive to levofloxacin. Klebsiella was resistant to Bactrim, but Proteus is sensitive to Bactrim. Patient has neuropathy with burning sensation and numbness. Plan/VTE VTE Prophylaxis Ordered?: Yes Plan 1. Gram-negative septic shock secondary to ESBL Klebsiella UTI and multidrug- resistant Proteus UA at [place] demonstrated dark brown urine, 500 leuk esterase, too numerous to count WBC, and 3+ bacteria Urine culture at [facility] grew ESBL Klebsiella Urine culture from [place] grew Proteus and Klebsiella. Zosyn day 7. Considering a 10-day course of antibiotics due to severity of sepsis and resistance of organisms Weaned off of Levophed and blood pressure maintaining 2. GRIS Creatinine at [place] was 3.1 Ultrasound renal negative for hydronephrosis Most likely secondary to septic shock Supportive care and avoid nephrotoxic agents Renal function at baseline 3. NSTEMI secondary to demand ischemia and shock Troponin increased from 0.7 to a peak of 2.23. Now has down trended to 1.61 Nighttime provider spoke with Dr. Alfaro. Gave aspirin 300 mg per rectally. Likely demand ischemia in setting of septic shock Supportive care 4. BPH/obstructive reflux uropathy Per nurse, patient has chronic Morton and chronic Morton was changed due to UTI We will hold tamsulosin due to shock 5. Seizure disorder Continue Keppra and phenytoin 6. GERD Continue omeprazole 7. Diarrhea Unknown etiology GI panel negative Okay for Imodium if patient desires Hold Colace 8. DVT prophylaxis Teds and Lovenox Disposition: Pending placement. VS, I&O, 24H, Fishbone Vital Signs/I&O Vital Signs Date Time Temp Pulse Resp B/P (MAP) Pulse Ox O2 Delivery O2 Flow Rate FiO2 07/26/21 14:00 97.8 89 19 136/82 (100) 96 Room Air 07/21/21 04:37 0.0 I&O- Last 24 Hours up to 6 AM 07/26/21 06:00 Intake Total 2060 ml Output Total 3275 ml Balance -1215 ml Laboratory Data 24H LABS Laboratory Tests 2 07/25/21 16:34: Bedside Glucose (Misc Panel) 122H 07/26/21 05:37: Nucleated Red Blood Cells % (auto) 0.0, Magnesium Level 1.7L CBC/BMP Laboratory Tests 07/26/21 05:37 Microbiology Microbiology 07/20/21 Blood Culture - Final, Complete NO GROWTH AFTER 5 DAYS 07/20/21 Blood Culture - Final, Complete Staphylococcus Epidermidis 07/20/21 Urine Culture - Final, Complete Klebsiella Pneumoniae Esbl 07/20/21 Gastrointestinal Tract Panel (PCR) - Final, Complete BRIANNA LIM DO Jul 26, 2021 15:52
[2021-07-26] MEDS: ACETAMINOPHEN 650MG ER TAB (TYLENOL ARTHRITIS) PO PRN (21:30)
[2021-07-26 22:00] VITALS: BP 130/75
[2021-07-27] MEDS: KCL 20MEQ IN D5/0.45NS 1000ML 1,000 ML IV SCH ×2 (02:56→09:28)
[2021-07-27] MEDS: PIPERACILLIN/TAZOBACTAM SOD 4.5 GM in D5W MINI-BAG PLUS 50 ML IV SCH ×2 (04:15→09:26)
[2021-07-27 06:00] VITALS: BP 138/68
[2021-07-27 06:01] LABS: HEMATOCRIT 34.7 % (42.0-52.0); HEMOGLOBIN 11.6 g/dl (13.5-17.5); MEAN CORPUSCULAR HEMOGLOBIN 32.8 pg (27.0-33.0); MEAN CORPUSCULAR HGB CONC 33.4 g/dl (32.0-36.5); PLATELET COUNT, AUTOMATED 297 10^3/uL (150-450); RED BLOOD COUNT 3.54 10^6/uL (4.30-6.10); WHITE BLOOD COUNT 7.7 10^3/uL (4.0-10.0)
[2021-07-27 06:19] LABS: BLOOD UREA NITROGEN 7 MG/DL (7-18); CALCIUM LEVEL 7.9 MG/DL (8.8-10.2); CARBON DIOXIDE LEVEL 32 MEQ/L (21-32); CHLORIDE LEVEL 105 MEQ/L (98-107); CREATININE FOR GFR 0.73 MG/DL (0.70-1.30); GLOMERULAR FILTRATION RATE > 60.0 (>35); GLUCOSE, FASTING 112 MG/DL (70-100); MAGNESIUM LEVEL 1.9 MG/DL (1.8-2.4); POTASSIUM SERUM 3.7 MEQ/L (3.5-5.1); SODIUM LEVEL 141 MEQ/L (136-145)
[2021-07-27] MEDS: PHENYTOIN ER 100 MG CAP PO SCH ×2 (09:27→20:51)
[2021-07-27] MEDS: GABAPENTIN 300 MG CAP PO SCH ×2 (09:27→20:51)
[2021-07-27] MEDS: levETIRAcetam 250MG TABLET (KEPPRA) PO SCH ×2 (09:27→20:51)
[2021-07-27] MEDS: OMEPRAZOLE 20 MG CAP PO SCH (09:27)
[2021-07-27] MEDS: ENOXAPARIN 40MG/0.4ML SYRINGE (J1650 PER 10MG) SC SCH (09:27)
[2021-07-27] MEDS: LevoFLOXacin 750 MG TABLET PO SCH (10:18)
[2021-07-27] MEDS: BACTRIM 160MG/800MG DS TAB PO SCH ×2 (10:19→20:51)
[2021-07-27] MEDS ORDERED: BARIUM SULFATE 700 MG TABLET (E-Z-DISK) As Ordered ONE (11:21)
[2021-07-27] MEDS ORDERED: E-Z-PAQUE 96% w/w SUSP 176GM BTL As Ordered ONE (11:21)
[2021-07-27] MEDS ORDERED: VARIBAR NECTAR 40% w/v 240ML SUSP BTL As Ordered ONE (11:21)
[2021-07-27] MEDS ORDERED: VARIBAR PUDDING 40% w/v 230ML TUBE As Ordered ONE (11:21)
[2021-07-27 14:00] VITALS: BP 136/71
[2021-07-27] MEDS ORDERED: FUROSEMIDE 40MG/4ML VIAL (J1940) IV ONE (14:30)
--- NOTE | 2021-07-27 15:50 | REP ---
INDICATION: PER SPEECH THERAPY. COMPARISON: None. TECHNIQUE: The procedure was performed by FILOMENA Michel, under the direct supervision of Dr. Cabrera. The procedure was performed with Bessy Cervantes from speech pathology present. 5 ml aliquots of thin, pudding, mixed fruit, soft food, hard food and pill consistency barium was administered. FINDINGS: The patient was able to successfully swallow all consistencies of barium administered without penetration or aspiration. The detailed report of this examination will be provided by speech pathology. IMPRESSION: The patient was able to successfully swallow all consistencies of barium administered without penetration or aspiration. Please see full report from speech pathology for further details. 2.8 minutes of fluoroscopy time was utilized for this procedure. Some fluoroscopic images are performed with last image hold technology. These images require no additional radiation <Electronically signed by Aparna Del Angel > 07/27/21 [id number] <Electronically signed by Haroon Cabrera > 07/27/21 [id number]
--- NOTE | 2021-07-27 16:40 | IPN ---
PROGRESS NOTE DATE: 07/27/2021 SUBJECTIVE: Patient is seen and examined at the bedside. Chart has been reviewed. Patient is afebrile. No complaints of chills or shortness of breath. Patient complains of bilateral lower extremity pain due to a burning sensation. OBJECTIVE: Vital signs: Temperature 98.6, pulse 85, respiratory rate 20, blood pressure 138/68, 95% on room air. General: Patient is awake, alert and oriented to himself only, in no distress. Neck: No JVD, no thyromegaly. Lungs: Clear to auscultation, no wheezing, no rales, no rhonchi. Heart: S1 and S2 sinus rhythm. Abdomen: Soft, nontender, nondistended, positive bowel sounds. Extremities: Chronic edema. Patient has decreased sensation in bilateral lower extremities. LABORATORY DATA: Laboratory data and microbiology have been reviewed. IMAGING STUDIES: Reviewed. ASSESSMENT: 81-year-old male with history of HSV encephalitis complicated with seizures status post acyclovir and history of pseudomass UTI and septic shock secondary to UTI. Patient is status post vasopressor therapy, on broad spectrum I.V. Zosyn. Urine culture grew out ESBL Klebsiella. Urine culture from [place] had Klebsiella and Proteus greater than 100,000 both sensitive to Zosyn; Proteus was sensitive to Bactrim and Klebsiella was sensitive to Levaquin. IMPRESSIONS/PLAN: 1. Septic shock status post vasopressor therapy and I.V. Zosyn. Urine culture from [place] grew out Proteus sensitive to Bactrim. Klebsiella at [facility] urine culture showed sensitivity to Levaquin. Patient has completed 7 days of I.V. Zosyn currently transitioning to Levaquin and Bactrim for 3 more days for a total of a 10 day course. 2. UTI secondary to chronic catheter for BPH: Status post septic shock with 7 days of I.V. Zosyn now on Levaquin and Bactrim renally dosed. 3. Acute kidney injury: Status post I.V. fluids currently back to normal with GFR greater than 60 and creatinine 0.73 status post intravenous fluids. 4. Dysphagia: Status post esophagram x-ray. Awaiting report. 5. Demand mediated ischemia due to septic shock: Troponin peaked at 2.23 currently on aspirin, supportive care 6. BPH and obstructive uropathy: With chronic Morton catheter, resume back on tamsulosin. 7. Seizure disorder: On chronic Keppra and phenytoin. 8. Reflux: On Prilosec. 9. Diarrhea: GI panel was negative. 10. Disposition: Medically stable for hospital discharge to complete 3 more days of oral antibiotics. MTDD
[2021-07-27] MEDS ORDERED: SODIUM CHLORIDE 0.9% INJ 10 ML SYR IV PRN (20:00)
[2021-07-28] MEDS: LevoFLOXacin 750 MG TABLET PO SCH (05:37)
[2021-07-28] MEDS ORDERED: SODIUM CHLORIDE 0.9% INJ 10 ML SYR IV SCH (06:00)
[2021-07-28 06:02] VITALS: BP 129/52
[2021-07-28 06:09] VITALS: BP 114/60
[2021-07-28 06:12] LABS: HEMATOCRIT 33.1 % (42.0-52.0); HEMOGLOBIN 11.3 g/dl (13.5-17.5); MEAN CORPUSCULAR HGB CONC 34.1 g/dl (32.0-36.5); MEAN CORPUSCULAR VOLUME 96.8 fl (80.0-96.0); PLATELET COUNT, AUTOMATED 314 10^3/uL (150-450); RED BLOOD COUNT 3.42 10^6/uL (4.30-6.10); WHITE BLOOD COUNT 8.7 10^3/uL (4.0-10.0)
[2021-07-28 06:38] LABS: BLOOD UREA NITROGEN 10 MG/DL (7-18); CALCIUM LEVEL 8.1 MG/DL (8.8-10.2); CARBON DIOXIDE LEVEL 30 MEQ/L (21-32); CHLORIDE LEVEL 100 MEQ/L (98-107); CREATININE FOR GFR 0.77 MG/DL (0.70-1.30); GLOMERULAR FILTRATION RATE > 60.0 (>35); GLUCOSE, FASTING 105 MG/DL (70-100); MAGNESIUM LEVEL 1.6 MG/DL (1.8-2.4); POTASSIUM SERUM 3.5 MEQ/L (3.5-5.1); SODIUM LEVEL 138 MEQ/L (136-145)
[2021-07-28] MEDS: BACTRIM 160MG/800MG DS TAB PO SCH ×2 (08:33→20:30)
[2021-07-28] MEDS: ENOXAPARIN 40MG/0.4ML SYRINGE (J1650 PER 10MG) SC SCH (08:34)
[2021-07-28] MEDS: OMEPRAZOLE 20 MG CAP PO SCH (08:34)
[2021-07-28] MEDS: PHENYTOIN ER 100 MG CAP PO SCH ×2 (08:34→20:30)
[2021-07-28] MEDS: GABAPENTIN 300 MG CAP PO SCH ×2 (08:34→20:31)
[2021-07-28] MEDS: levETIRAcetam 250MG TABLET (KEPPRA) PO SCH ×2 (08:34→20:31)
[2021-07-28] MEDS ORDERED: LEVO750T13 PO (10:03)
[2021-07-28] MEDS ORDERED: BACTDSTA PO (10:03)
[2021-07-28] MEDS ORDERED: MAGNESIUM OXIDE 400MG TAB (MAG-OX) PO ONE (10:30)
[2021-07-28] MEDS ORDERED: MAG SULF 1GM/100ML (MAG RUN) 1 GM in IV 1 EA IV ONE (11:00)
--- NOTE | 2021-07-28 12:12 | DSES ---
DISCHARGE SUMMARY DATE OF ADMISSION: 07/19/2021 DATE OF DISCHARGE: 07/28/2021 PRIMARY DISCHARGE DIAGNOSES: 1. Septic shock. 2. ESBL Klebsiella and Proteus urinary tract infection. 3. Catheter-associated urinary tract infection due to chronic Morton catheter. 4. Vzcxf-dm-bixslst kidney disease. 5. Demand mediated ischemia with non-ST elevation myocardial infarction secondary to septic shock. 6. Obstructive reflux uropathy, BPH with chronic Morton catheter. 7. History of seizure disorder, history of GERD. 8. Diarrhea, antibiotic induced with negative GI panel. 9. History of recent HSV-1 encephalitis complicated with seizures, completed 10 days of acyclovir. 10. Hyperlipidemia. 11. Cognitive disorder. 12. Chronic dysarthria. 13. Non-Hodgkin's lymphoma. 14. History of mesothelioma. 15. Asbestos exposure. DISCHARGE MEDICATIONS: 1. Bactrim two tabs p.o. b.i.d. for two days. 2. Levaquin 750 daily for two days. DISCHARGE INSTRUCTIONS: Follow up with urology within a week of discharge, follow up with primary care physician within a week of discharge. HOSPITAL COURSE: This is an 81-year-old male with history of BPH and reflux uropathy with a chronic Morton catheter, admitted due to septic shock. The patient was originally sent to [facility] for altered mental status, was unresponsive, febrile and hypotensive. Labs showed a white count of 33,000, lactic acid of 10 with brown urine, 3+ bacteria. Patient was admitted for septic shock secondary to urinary tract infection with history of pseudomonal UTI. The patient was given Zosyn and vancomycin, placed on Levophed to keep mean arterial pressure above 65. Urine culture grew out Klebsiella and Proteus. Klebsiella was sensitive to Levaquin, Proteus to Bactrim. The patient completed seven days of Zosyn. Vancomycin was discontinued due to his transition to Levaquin and Bactrim with normalization of white count. On admission, he had a creatinine of 3.1. He was given intravenous fluids and has been taken off Levophed with creatinine improving back to normal. The patient was found to have demand mediated cardiac ischemia with non-ST elevation myocardial infarction with elevated troponin secondary to tachycardia and underlying septic shock and started on aspirin. The patient was transferred out of the ICU to a medical-surgical floor, remained afebrile with normal white count and improved creatinine back to baseline of 0.68. The patient had episodes of electrolyte abnormalities with low potassium, magnesium which were all supplemented. DISCHARGE PHYSICAL EXAM: Vital signs: Temperature 96.8, pulse 91, respiratory rate 18, blood pressure 114/60, 95% on room air. Generally, patient is dysarthric. Face is symmetric. Tongue is midline. Lungs: Clear to auscultation, no wheezing or rales. Heart: S1, S2, sinus rhythm. Abdomen: Soft, nontender, nondistended. Positive bowel sounds. Morton catheter with yellow urine. Extremities: Chronic edema, decreased sensation, bilateral lower extremities. Laboratory data, microbiology, imaging studies: Please see the chart. Time spent on discharge: 30 minutes. MTDD
[2021-07-28 12:31] LABS: BLOOD UREA NITROGEN 7 MG/DL (7-18); CALCIUM LEVEL 7.3 MG/DL (8.8-10.2); CARBON DIOXIDE LEVEL 30 MEQ/L (21-32); CHLORIDE LEVEL 101 MEQ/L (98-107); GLOMERULAR FILTRATION RATE > 60.0 (>35); GLUCOSE, FASTING 101 MG/DL (70-100); POTASSIUM SERUM 3.6 MEQ/L (3.5-5.1); SODIUM LEVEL 138 MEQ/L (136-145)
[2021-07-28 14:00] VITALS: BP 114/61
--- NOTE | 2021-07-28 14:52 | REP ---
INDICATION: AMS LEFT SIDED WEAKNESS R/O CVA COMPARISON: 05/13/2021 TECHNIQUE: Axial noncontrast images from the skull base to the thoracic inlet with coronal reformations. This CT examination was performed using the following dose reduction techniques: Automated exposure control, adjustment of mA and/or kv according to the patient's size, and use of iterative reconstruction technique. FINDINGS: Atrophy with periventricular leukomalacia and microvascular ischemic changes are appreciated. Relatively new low-density changes involving the right frontal lobe consistent with acute/subacute infarction. No evidence for hemorrhage or edema/mass effect. The ventricles, cisterns and sulci are symmetric and patent. There is no evidence for acute intracranial hemorrhage, mass/mass effect, pathology or infarction. No extra-axial fluid collection. Calvarium is intact. Paranasal sinuses and mastoid air cells are clear. IMPRESSION: Large area of low density involving the right frontal lobe new as compared with 05/13/2021 and consistent with acute/subacute infarction. No hemorrhage or edema/mass effect. <Electronically signed by Aaron Major > 07/28/21 [id number]
[2021-07-28] MEDS ORDERED: SIMV40TA20 PO (15:09)
[2021-07-28] MEDS ORDERED: ASPI-551 PO (15:09)
[2021-07-28] MEDS: ASPIRIN 81MG ENTERIC TABLET PO SCH (15:29)
[2021-07-28] MEDS ORDERED: SIMVASTATIN 40 MG TAB PO ONE (16:00)
[2021-07-28] MEDS ORDERED: ISOVUE-370 76% 100ML VIAL As Ordered ONE (16:05)
--- NOTE | 2021-07-28 16:09 | IPNPDOC ---
Date Seen The patient was seen on 07/28/21. Progress Note CRITICAL CARE NOTE: Pt was last known to be normal at 12noon-12:30pm. At 2pm, pt was found to have a new left sided weakness. STAT CT head w/o contrast at 2:14pm: new large right frontal CVA. Per Neurologist, Dr. Mcgraw, pt is out of the window for tPA. SUBJECTIVE: dysarthric, unable to provide ROS OBJECTIVE PHYSICAL EXAMINATION: VITAL SIGNS: Please see below. GENERAL: no distress HEENT: face symmetric tongue midline. dysarthric. no jvd. moist mm CARDIOVASCULAR:S1S2 RRR RESPIRATORY:CTAB AEBE ABDOMINAL: +BS soft nt nd EXTREMITIES:left LE edema. right no edema NEUROLOGICAL: left 4/5 UE/LE strength diminished sensation LLE. dysarthric no pronator drift. face symmetric tongue and uvula midline. right 5/5 strength UE/LE gait not tested LABORATORY DATA, IMAGING STUDIES, MICROBIOLOGY: Please see below. Echocardiogram: pending report DVT prophylaxis ordered?: lovenox 40 mg sq daily ASSESSMENT AND PLAN: 81M w new acute vs subacute large left frontal CVA last seen to be normal around noon-12:30pm. new large frontal CVA, acute vs. subacute: -pt given ASA and zocor. on lovenox 40 mg sq daily for DVT prophylaxis. 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 -stat CTA head, CTA neck. -Stat MRI brain -neurocheck q4hrs -Telemetry -transfer to pcu. -avoid hypotension. ivfluids . -Echo-report pending. -lipid panel in am. -ARU screen VS, I&O, 24H, Fishbone Vital Signs/I&O Vital Signs Date Time Temp Pulse Resp B/P (MAP) Pulse Ox O2 Delivery O2 Flow Rate FiO2 07/28/21 14:00 97.3 91 14 114/61 (78) 95 Room Air I&O- Last 24 Hours up to 6 AM 07/28/21 06:00 Intake Total 600 ml Output Total 2550 ml Balance -1950 ml Laboratory Data 24H LABS Laboratory Tests 2 07/27/21 16:17: Coronavirus (COVID-19)(PCR) NEGATIVE 07/28/21 05:36: Nucleated Red Blood Cells % (auto) 0.0, Anion Gap 8, Glomerular Filtration Rate > 60.0, Calcium Level 8.1L, Magnesium Level 1.6L 07/28/21 14:56: Prolactin 7.9 CBC/BMP Laboratory Tests 07/28/21 05:36 Microbiology Microbiology 07/20/21 Blood Culture - Final, Complete NO GROWTH AFTER 5 DAYS 07/20/21 Blood Culture - Final, Complete Staphylococcus Epidermidis 07/20/21 Urine Culture - Final, Complete Klebsiella Pneumoniae Esbl 07/20/21 Gastrointestinal Tract Panel (PCR) - Final, Complete CHUY SEALS MD Jul 28, 2021 16:09
[2021-07-28 16:22] VITALS: BP 111/60
[2021-07-28] MEDS ORDERED: NS 1,000 ML IV ONE (17:00)
--- NOTE | 2021-07-28 18:08 | REPVR ---
PROCEDURE INFORMATION: Exam: CT Angiography Neck With Contrast Exam date and time: 07/28/2021 5:13 PM Age: 81 years old Clinical indication: Condition or disease; Infarction; Additional info: Large right frontal CVA TECHNIQUE: Imaging protocol: Computed tomography angiography of the neck with contrast. 3D rendering (Not supervised by radiologist): MIP and/or 3D reconstructed images were created by the technologist. Radiation optimization: All CT scans at this facility use at least one of these dose optimization techniques: automated exposure control; mA and/or kV adjustment per patient size (includes targeted exams where dose is matched to clinical indication); or iterative reconstruction. Contrast material: ISOVUE 370; Contrast volume: 100 ml; Contrast route: INTRAVENOUS (IV); COMPARISON: NM WBC IN111 WHOLE BODY 05/25/2021 8:28 AM FINDINGS: Right common carotid, cervical ICA and proximal ECA demonstrate contrast opacification with no occlusion, flow limiting stenosis, or intimal flap to suggest dissection. Right carotid bulb and proximal right ICA demonstrates eccentric calcified atherosclerotic plaque with milder than 50% luminal caliber narrowing Left common carotid, cervical ICA and proximal ECA demonstrate contrast opacification, with no occlusion, flow limiting stenosis, or intimal flap to suggest dissection. Left carotid bulb and proximal left ICA demonstrates eccentric calcified atherosclerotic plaque with milder than 50% luminal caliber narrowing. Vertebral arteries demonstrate normal course to the level of the skull base and show no occlusion, flow limiting stenosis or dissection. No flow limiting stenosis or anomaly of the great vessel origins. No concerning asymmetric neck soft tissue abnormality. Areas of scarring and calcification in the lung apices, incompletely imaged. Multi-level cervical degenerative disc and articular pillar arthropathy is present. IMPRESSION: Bilateral carotid bulb and proximal ICA atherosclerotic plaque, certainly milder than 50% luminal caliber narrowing. No high-grade lesion. Probable bilateral apical lung scarring and dystrophic calcification REFERENCES: NASCET CRITERIA. The degree of internal carotid artery stenosis is based on NASCET criteria. Normal is no stenosis. Mild is less than 50% stenosis. Moderate is 50-69% stenosis. Severe is 70% to 99% stenosis. Total occlusion is no detectable patent lumen. Electronically signed by: Agustin Davis On 07/28/2021 18:08:31 PM
--- NOTE | 2021-07-28 18:12 | REPVR ---
PROCEDURE INFORMATION: Exam: CT Angiography Head With Contrast, Arteriography Exam date and time: 07/28/2021 5:13 PM Age: 81 years old Clinical indication: Condition or disease; Infarction; Additional info: Large right frontal CVA TECHNIQUE: Imaging protocol: Computed tomography angiography of the head with contrast. Exam focused on the arteries. 3D rendering (Not supervised by radiologist): MIP and/or 3D reconstructed images were created by the technologist. Radiation optimization: All CT scans at this facility use at least one of these dose optimization techniques: automated exposure control; mA and/or kV adjustment per patient size (includes targeted exams where dose is matched to clinical indication); or iterative reconstruction. Contrast material: ISOVUE 370; Contrast volume: 100 ml; Contrast route: INTRAVENOUS (IV); COMPARISON: CT Head without contrast 07/28/2021 2:35 PM FINDINGS: Ventricles, cisterns and sulci are symmetric and appropriate for age. No intracranial mass or focal mass effect. No intracranial hemorrhage, midline shift or acute territorial infarct. Mild decreased attenuation in periventricular/centrum semiovale white matter. Old right frontal volume loss, and encephalomalacia. Anterior circulation: Normal contrast opacification and luminal caliber in the petrous, cavernous and supraclinoid internal carotid arteries. Normal appearance of the anterior cerebral artery branches and middle cerebral artery branches through the MCA trifurcations. No occlusion, high-grade focal stenosis or dissection. No aneurysm. Diminutive left A1 segment. Normal caliber left anterior cerebral artery is supplied by an anterior communicating artery Posterior circulation: Distal vertebral arteries enhance normally to the vertebrobasilar junction. Normally enhancing, normal caliber basilar artery, and normal superior cerebellar and posterior cerebral arteries. No occlusion, high-grade stenosis or aneurysm. Dural sinuses enhance normally. Bony structures show no acute fracture or destructive process. IMPRESSION: No intracranial large vessel arterial occlusive or stenotic lesion and no evidence of [id number] aneurysm. Old appearing right frontal infarct with encephalomalacia. This was present on MRI from May 17 2021 Electronically signed by: Agustin Davis On 07/28/2021 18:12:21 PM
--- NOTE | 2021-07-28 19:43 | REPVR ---
PROCEDURE INFORMATION: Exam: MR Head Without Contrast Exam date and time: 07/28/2021 7:02 PM Age: 81 years old Clinical indication: Weakness, extremity; Left; Additional info: Left sided weakness TECHNIQUE: Imaging protocol: MR of the head without contrast. COMPARISON: CT Head without contrast 07/28/2021 2:35 PM FINDINGS: Confluent low-grade increased diffusion signal in the frontal lobes and anterior corpus callosum, right more so than left. Gyral atrophy and extensive T2 and FLAIR white matter signal abnormality in these regions which may reflect developing gliosis. This is definitely progressive since the prior MRI Midline structures and cerebellar tonsillar position appear normal. No midline shift or abnormal extra-axial fluid. No acute intracranial hemorrhage. No abnormal white matter signal on FLAIR and T2 sequences. Optic chiasm and pituitary infundibulum appear normal. Normal vascular flow voids in major intracranial arteries and dural venous sinuses. Paranasal sinuses are normally aerated. Mastoid air cells are normally aerated. Optic globes and orbits are unremarkable. IMPRESSION: Evolving bilateral frontal lobe changes, right worse than left, with developing atrophy and underlying gliosis. This may be sequela of the presumed encephalitis discussed on the MRI from January 2021. An infiltrative neoplasm is felt to be less likely Electronically signed by: Agustin Davis On 07/28/2021 19:42:52 PM
--- NOTE | 2021-07-28 19:45 | REPVR ---
PROCEDURE INFORMATION: Exam: MRA Neck Without Contrast Exam date and time: 07/28/2021 7:02 PM Age: 81 years old Clinical indication: Weakness; Additional info: Left sided weakness TECHNIQUE: Imaging protocol: Magnetic resonance angiography of the neck without contrast. COMPARISON: CT ANGIO NECK 07/28/2021 5:12 PM FINDINGS: Bilateral common carotid arteries, carotid bulbs, internal carotids and proximal external carotid branches show normal symmetric luminal caliber and flow signal. No high-grade stenosis. No occlusion or dissection. Both vertebral arteries are normal in luminal caliber and flow signal to the level of the skull base. No dissection, or occlusion or focal stenosis. No abnormality of the great vessel origins from the aortic arch. IMPRESSION: Unremarkable MR angiogram of the neck. REFERENCES: NASCET CRITERIA. The degree of internal carotid artery stenosis is based on NASCET criteria. Normal is no stenosis. Mild is less than 50% stenosis. Moderate is 50-69% stenosis. Severe is 70% to 99% stenosis. Total occlusion is no detectable patent lumen. Electronically signed by: Agustin Davis On 07/28/2021 19:44:37 PM
[2021-07-28 20:00] VITALS: BP 122/60
[2021-07-29] VITALS: BP 114/55
[2021-07-29 04:00] VITALS: BP 111/59
[2021-07-29 04:50] LABS: HEMATOCRIT 33.9 % (42.0-52.0); HEMOGLOBIN 11.2 g/dl (13.5-17.5); MEAN CORPUSCULAR HEMOGLOBIN 32.7 pg (27.0-33.0); MEAN CORPUSCULAR VOLUME 98.8 fl (80.0-96.0); PLATELET COUNT, AUTOMATED 312 10^3/uL (150-450); RED BLOOD COUNT 3.43 10^6/uL (4.30-6.10); WHITE BLOOD COUNT 6.7 10^3/uL (4.0-10.0)
[2021-07-29] MEDS: ACETAMINOPHEN 650MG ER TAB (TYLENOL ARTHRITIS) PO PRN (05:15)
[2021-07-29] MEDS: LevoFLOXacin 750 MG TABLET PO SCH (05:15)
[2021-07-29 05:18] LABS: BLOOD UREA NITROGEN 13 MG/DL (7-18); CALCIUM LEVEL 8.4 MG/DL (8.8-10.2); CARBON DIOXIDE LEVEL 29 MEQ/L (21-32); CHLORIDE LEVEL 104 MEQ/L (98-107); CHOLESTEROL LEVEL 134 MG/DL (<200); GLOMERULAR FILTRATION RATE > 60.0 (>35); GLUCOSE, FASTING 93 MG/DL (70-100); HDL CHOLESTEROL 21 MG/DL (>40); LDL CHOLESTEROL 81 MG/DL (<100); NON-HDL-C 113 MG/DL; POTASSIUM SERUM 3.8 MEQ/L (3.5-5.1); SODIUM LEVEL 139 MEQ/L (136-145); TRIGLYCERIDES LEVEL 159 MG/DL (<150)
[2021-07-29 08:00] VITALS: BP 114/66
[2021-07-29] MEDS: BACTRIM 160MG/800MG DS TAB PO SCH ×2 (10:42→22:35)
[2021-07-29] MEDS: OMEPRAZOLE 20 MG CAP PO SCH (10:42)
[2021-07-29] MEDS: levETIRAcetam 250MG TABLET (KEPPRA) PO SCH ×2 (10:42→20:22)
[2021-07-29] MEDS: GABAPENTIN 300 MG CAP PO SCH ×2 (10:42→20:17)
[2021-07-29] MEDS: ASPIRIN 81MG ENTERIC TABLET PO SCH (10:42)
[2021-07-29] MEDS: PHENYTOIN ER 100 MG CAP PO SCH ×2 (10:43→20:22)
[2021-07-29] MEDS: ENOXAPARIN 40MG/0.4ML SYRINGE (J1650 PER 10MG) SC SCH (10:44)
[2021-07-29 12:00] VITALS: BP 109/67
[2021-07-29] MEDS: ESCITALOPRAM OXALATE 5MG TABLET (LEXAPRO) PO SCH (12:26)
--- NOTE | 2021-07-29 14:30 | IPN ---
PROGRESS NOTE DATE: 07/29/2021 SUBJECTIVE: Patient was seen and examined at the bedside. Chart has been reviewed. He was emergently transferred to the progressive care unit (PCU) after being found to have left-sided weakness with STAT CT showing acute or subacute left frontal cerebrovascular accident (CVA). 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 Per neurologist, Dr. Mcgraw, who examined the patient yesterday, changes may be due to prior HSV encephalitis, but recommended full stroke workup with echocardiogram, which was completed yesterday. This morning, patient's speech is significantly improved. He has no facial asymmetry. He is answering questions appropriately with no new neurological issues overnight. 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 He currently denies any shortness of breath, chest pain, pressure, tightness, lightheadedness or dizziness. No dysphagia or odynophagia. No fever or chills overnight. No cough. Denies any dysuria, urgency or frequency. Patient has chronic Morton catheter. PHYSICAL EXAMINATION: VITAL SIGNS: Temperature 97.8, pulse 85 sinus rhythm, respiratory rate 18, blood pressure 111/59, 96% on room air. Telemetry shows sinus rhythm, ventricular rate of 85-92. GENERAL: Awake, alert, oriented to himself, place and time. HEENT: Face is symmetric. Patient has resting tremors of his upper and lower lip on the right side. Tongue is midline. Uvula is midline. NEUROLOGICAL: Patient's motor function is 4/5 bilateral upper and lower extremities. Gait was not tested. LUNGS: Clear to auscultation without wheezing, rales or rhonchi. HEART: S1, S2. Sinus rhythm. ABDOMEN: Soft, nontender, nondistended. GENITOURINARY: Morton catheter with yellow-colored urine noted. EXTREMITIES: No cyanosis or clubbing. Patient has chronic edema of the left lower extremity 2+. Right lower extremity has trace edema. LABORATORY DATA/MICROBIOLOGY/IMAGING STUDIES: Have been reviewed. 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 Patient was found to have Klebsiella and Proteus urinary tract infection related to his catheter. He was given intravenous (IV) Levophed and intravenous fluids with resolution of the hypotension and septic shock. He was subsequently transferred to the medical/surgical floor, where he completed his antibiotics, Zosyn, for seven days and has been switched to Levaquin and Bactrim. Yesterday, on 07/28/2021 around noon, patient was found to be normal. At 2:00 p.m., he was found to have worsening left-sided weakness. STAT CT head showed acute or subacute large right frontal cerebrovascular accident (CVA). Patient was given aspirin and Zocor. Neurologist was consulted. MRI of the brain shows bilateral frontal lobe changes, right greater than left, with developing atrophy and underlying gliosis, may be a sequelae of the previous encephalitis as seen on previous MRI in January 2021. Infiltrative neoplasm is less likely. ACTIVE ISSUES ARE FOLLOWS: 1. Left hemiparesis with history of herpes simplex virus (HSV) encephalitis and nucleosis and atrophy found on bilateral frontal lobes on MRI of the brain. 2. Questionable large right frontal lobe cerebrovascular accident (CVA). May be a sequelae of previous HSV encephalitis. 3. Septic shock, resolved. 4. Catheter-associated urinary tract infection with Proteus and Klebsiella. Completed seven days of IV Zosyn. Finishing up seven more days of Levaquin and Bactrim, renally dosed. 5. Acute metabolic encephalopathy secondary to septic shock and catheter-associated urinary tract infection, resolved. Back to baseline mentation. 6. Acute kidney injury. Creatinine at [facility] was 3.1. Ultrasound was negative for hydronephrosis secondary to septic shock, which is now back to baseline. 7. Non-ST elevation myocardial infarction secondary to demand mediated ischemia and septic shock. Patient was given aspirin. 8. Benign prostatic hypertrophy (BPH) with chronic obstructive reflux uropathy with chronic Morton catheter and history of CAUTI 9. History of seizure disorder on chronic Keppra and phenantoin. 10. Gastroesophageal reflux disease (GERD). On Prilosec. 11. Diarrhea. Gastrointestinal (GI) panel was negative. PLAN: Awaiting echocardiogram report, but no obvious atrial thrombus or significant valvular disease when reviewed at the bedside. Patient is continued on aspirin and Zocor, all the home medications and finishing up his Levaquin and Bactrim. Neurologist has been consulted, Dr. Mcgraw, and await further recommendations. If stable, patient may be discharged to rehabilitation in the morning. Telemetry remains unremarkable. MTDD
--- NOTE | 2021-07-29 14:30 | CR ---
CONSULTATION DATE: 07/28/2021 REFERRING PHYSICIAN: Jelly Bueno MD REASON FOR CONSULTATION: Sudden changes in neurological state. HISTORY OF PRESENT ILLNESS: Sj Teixeira is an 81-year-old man, who was admitted at [facility] on May 2021 and was diagnosed with herpes simplex encephalitis and had generalized tonic clonic seizures. He required intravenous acyclovir, short course of Decadron, phenytoin and Keppra and his neurological state improved and he was discharged home. He failed to follow up on outpatient basis with our office. He was admitted at [facility] on July 19, 2021 due to septic shock. He was sent to [facility] from rehabilitation with altered mental status. He was found to be unresponsive, febrile, hypotensive. He was thought to have urinary tract infection (UTI) resulting in sepsis and septic shock. He was getting better and was being discharged to rehabilitation today and his last known well time was around 12 noon. I received a call after [address] Bueno that he had alteration in his speech and had slight weakness on the left side. CT scan of head on urgent basis was reported as subacute right frontal ischemic stroke. I reviewed the scan and it was impression that these changes are all residual from his herpes simplex encephalitis without any acute disease. I examined the patient around 4:45 and the patient stated that he has tremor of jaw and left hand for the last one month and he had double vision for the last three weeks without any changes acutely in his neurological status. He denied alteration in his speech. He was able to follow all commands and appeared awake, alert and oriented to place, person, time, month, year and name of President. He had no focal weakness on either side of his body. He has on and off neck and back pain. He denied any seizures. PAST MEDICAL HISTORY: 1. Herpes simplex encephalitis in 2020, complicated with seizures requiring acyclovir, steroids and antiepileptic medications. 2. Urinary tract infection resulting in septic shock. 3. Seizures. 4. Dyslipidemia. 5. Prostate enlargement. 6. Dysarthria. 7. Mesothelioma/asbestos exposure. 8. Obstructive uropathy. SOCIAL HISTORY: He denies smoking, alcohol or illicit drugs. FAMILY HISTORY: Unremarkable and noncontributory. REVIEW OF SYSTEMS: All systems were reviewed and found to be noncontributory, except as mentioned in history of present illness. HOME MEDICATIONS: Gabapentin 300 mg by mouth twice a day, Keppra 250 mg at night and 500 mg in the morning, phenytoin 200 mg by mouth twice a day, Flomax 0.4 mg by mouth daily, omeprazole 20 mg by mouth daily, Tylenol as needed, zinc oxide application on skin as needed. ALLERGIES: None. PHYSICAL EXAMINATION: Temperature 97.7, pulse 92, respiratory rate 20, blood pressure 122/60, pulse 92, 97% saturation on room air. Heart: Regular rate and rhythm. Lungs: Clear to auscultation. Abdomen: Soft, nontender, non-distended. No pedal edema. No musculoskeletal abnormalities. No rash. No signs of meningeal irritation. The patient is awake, alert and oriented to place, person and time with normal speech, comprehension and repetition. He was able to tell the day, the date, month, year and name of President, city, state, hospital. No facial weakness. He does not have teeth. He appears to have jaw tremor. Extraocular muscles are intact. No facial weakness. Tongue and uvula midline. 5/5 strength in all four extremities. Deep tendon reflexes. Normal sensation throughout. No dysmetria. Gait was not tested. DIAGNOSTIC STUDIES: CT scan of head showed large right frontal encephalomalacia, which is likely residual from his herpes simplex encephalitis. I recommended MRI scan of brain, which was later completed and showed encephalomalacia in bilateral frontal head region, residual from his herpes simplex encephalitis, more on the right side. IMAGING DATA: CT angiography of head and neck showed less than 50% bilateral carotid artery stenosis. CT angiography of head did not show any acute disease or vascular occlusion. Hemoglobin was 11.2, white cells 6.7, platelet count 312. Basic metabolic profile was unremarkable. Total cholesterol was 134. LDL 81, HDL was 21. ASSESSMENT: 1. Double vision and left arm and jaw tremor for 3-4 weeks without any acute change. These are likely residual from his herpes simplex encephalitis. 2. Herpes simplex encephalitis in May 2021. 3. Generalized tonic clonic seizures with focal onset related to above. 4. Urinary tract infection and septic shock. PLAN: 1. Aspirin 81 mg by mouth daily. 2. Continue phenytoin 200 mg by mouth twice a day and Keppra 500 plus 250 mg daily. 3. Check phenytoin level to rule out any toxicity. 4. Physical therapy and occupational therapy. 5. Follow with in our office in 1-2 weeks after hospital discharge.
[2021-07-29 16:00] VITALS: BP 109/65
--- NOTE | 2021-07-29 19:16 | ECGEPIP ---
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
--- NOTE | 2021-07-29 19:21 | ECGEPIP ---
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
[2021-07-29 20:00] VITALS: BP 100/58
[2021-07-30 03:57] LABS: HEMATOCRIT 34.6 % (42.0-52.0); HEMOGLOBIN 11.7 g/dl (13.5-17.5); MEAN CORPUSCULAR HEMOGLOBIN 32.7 pg (27.0-33.0); MEAN CORPUSCULAR HGB CONC 33.8 g/dl (32.0-36.5); MEAN CORPUSCULAR VOLUME 96.6 fl (80.0-96.0); PLATELET COUNT, AUTOMATED 347 10^3/uL (150-450); RED BLOOD COUNT 3.58 10^6/uL (4.30-6.10); WHITE BLOOD COUNT 7.3 10^3/uL (4.0-10.0)
[2021-07-30 04:00] VITALS: BP 115/69
[2021-07-30 04:20] LABS: BLOOD UREA NITROGEN 12 MG/DL (7-18); CALCIUM LEVEL 8.5 MG/DL (8.8-10.2); CARBON DIOXIDE LEVEL 26 MEQ/L (21-32); CHLORIDE LEVEL 104 MEQ/L (98-107); CREATININE FOR GFR 0.76 MG/DL (0.70-1.30); GLOMERULAR FILTRATION RATE > 60.0 (>35); GLUCOSE, FASTING 79 MG/DL (70-100); POTASSIUM SERUM 4.1 MEQ/L (3.5-5.1); SODIUM LEVEL 136 MEQ/L (136-145)
[2021-07-30 08:00] VITALS: BP 119/68
[2021-07-30] MEDS: levETIRAcetam 250MG TABLET (KEPPRA) PO SCH (08:50)
[2021-07-30] MEDS: ENOXAPARIN 40MG/0.4ML SYRINGE (J1650 PER 10MG) SC SCH (08:50)
[2021-07-30] MEDS: PHENYTOIN ER 100 MG CAP PO SCH (08:52)
[2021-07-30] MEDS: OMEPRAZOLE 20 MG CAP PO SCH (08:54)
[2021-07-30] MEDS: ASPIRIN 81MG ENTERIC TABLET PO SCH (08:54)
[2021-07-30] MEDS: ESCITALOPRAM OXALATE 5MG TABLET (LEXAPRO) PO SCH (08:56)
[2021-07-30] MEDS: GABAPENTIN 300 MG CAP PO SCH (09:00)
[2021-07-30] MEDS ORDERED: SIMVASTATIN 40 MG TAB PO SCH (09:00)
--- NOTE | 2021-07-30 11:03 | IPNPDOC ---
Date Seen The patient was seen on 07/30/21. Progress Note SUBJECTIVE: no new neurologic symptoms overnight. requiring assistance w meals today. slight cough w/o fever.no other neuro c/o. PHYSICAL EXAMINATION: VITAL SIGNS: see below GENERAL: Awake, alert, oriented to himself, place and time. HEENT: Face is symmetric. jaw tremors. Tongue is midline. Uvula is midline. NEUROLOGICAL: Patient's motor function is 4/5 bilateral upper and lower extremities. Gait was not tested. LUNGS: Clear to auscultation without wheezing, rales or rhonchi. HEART: S1, S2. Sinus rhythm. ABDOMEN: Soft, nontender, nondistended. GENITOURINARY: Morton catheter with yellow-colored urine noted. EXTREMITIES: No cyanosis or clubbing. Patient has chronic edema of the left lower extremity 2+. Right lower extremity has trace edema. NEURO: b/l ue/le 5/5/ strength. face symmetric toung and uvula midline jaw tremors. gait not tested. decreased sensation b/l LE. chronic neuropathy b/l feet LABORATORY DATA/MICROBIOLOGY/IMAGING STUDIES: Have been reviewed. 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 Patient was found to have Klebsiella and Proteus urinary tract infection related to his catheter. He was given intravenous (IV) Levophed and intravenous fluids with resolution of the hypotension and septic shock. He was subsequently transferred to the medical/surgical floor, where he completed his antibiotics, Zosyn, for seven days and has been switched to Levaquin and Bactrim. Yesterday, on 07/28/2021 around noon, patient was found to be normal. At 2:00 p.m., he was found to have worsening left-sided weakness. STAT CT head showed acute or subacute large right frontal cerebrovascular accident (CVA). Patient was given aspirin and Zocor. Neurologist was consulted. MRI of the brain shows bilateral frontal lobe changes, right greater than left, with developing atrophy and underlying gliosis, may be a sequelae of the previous encephalitis as seen on previous MRI in January 2021. Infiltrative neoplasm is less likely. ACTIVE ISSUES ARE FOLLOWS: 1. Left hemiparesis with history of herpes simplex virus (HSV) encephalitis and nucleosis and atrophy found on bilateral frontal lobes on MRI of the brain. 2. Questionable large right frontal lobe cerebrovascular accident (CVA). May be a sequelae of previous HSV encephalitis. 3. Septic shock, resolved. 4. Catheter-associated urinary tract infection with Proteus and Klebsiella. Completed seven days of IV Zosyn 5. Acute metabolic encephalopathy secondary to septic shock and catheter-associated urinary tract infection, resolved. Back to baseline mentation. 6. Acute kidney injury. resolved 7. Non-ST elevation myocardial infarction secondary to demand mediated ischemia and septic shock. Patient was given aspirin. 8. Benign prostatic hypertrophy (BPH) with chronic obstructive reflux uropathy with chronic Morton catheter and history of CAUTI 9. History of seizure disorder on chronic Keppra and phenantoin. 10. Gastroesophageal reflux disease (GERD). 11. Diarrhea. Gastrointestinal (GI) panel was negative. PLAN: per Dr. Mcgraw, asa and zocor and outpt fu in 1-2wks. MRI brain most likely due to hsv encephalitis sequela. carotid and echo reviewed. medically stable for dc. previous rehab bed not available now. may transfer to [facility]. aru consulted. finishing abx for uti. assistance w meals. no aspiration noted. fall precautions and assisted ambulation only. VS, I&O, 24H, [facility] Vital Signs/I&O Vital Signs Date Time Temp Pulse Resp B/P (MAP) Pulse Ox O2 Delivery O2 Flow Rate FiO2 07/30/21 08:00 97.2 82 18 119/68 (85) 96 Room Air I&O- Last 24 Hours up to 6 AM 07/30/21 06:00 Intake Total 960 ml Output Total 950 ml Balance 10 ml Laboratory Data 24H LABS Laboratory Tests 2 07/30/21 03:36: Nucleated Red Blood Cells % (auto) 0.0, Anion Gap 6L, Glomerular Filtration Rate > 60.0, Calcium Level 8.5L CBC/BMP Laboratory Tests 07/30/21 03:36 Microbiology Microbiology 07/20/21 Blood Culture - Final, Complete NO GROWTH AFTER 5 DAYS 07/20/21 Blood Culture - Final, Complete Staphylococcus Epidermidis 07/20/21 Urine Culture - Final, Complete Klebsiella Pneumoniae Esbl 07/20/21 Gastrointestinal Tract Panel (PCR) - Final, Complete CHUY SEALS MD Jul 30, 2021 10:57
--- NOTE | 2021-07-31 11:15 | ECHO ---
ECHOCARDIOGRAM DATE OF PROCEDURE: 07/28/2021 Age: 81 Gender: Male Height: Weight: REFERRING PROVIDER: Jelly Bueno M.D. PATIENT LOCATION: Room 5143. REASON FOR THE TESTING: Cerebrovascular accident (CVA). MEASUREMENTS: 2D Measurements: IVS 1.5 cm LV 3.9 cm LVPW 1.2 cm LA 3.2 cm Aorta 3.6 cm IVC 1.9 cm Doppler Measurements: Peak velocity across the aortic valve 1.4 m/sec Peak velocity across the LVOT 1.8 m/sec Mitral E 0.69 Mitral A 0.85 with a ratio of 0.8 2D COMMENTS: 1. Normal left ventricular size with mildly increased left ventricular wall thickness and a hyperdynamic left ventricle. The estimated left ventricular systolic ejection fraction is 65-70%. 2. Normal left atrium. Normal right atrium and right ventricle. 3. The atrial septum appeared to be normal without evidence of defect or shunt. 4. Normal aortic root. 5. Echo free space noted anteriorly may represent a small pericardial effusion versus a fat pad. 6. Mildly calcified aortic valve with normal leaflet excursion. Mildly calcified mitral annulus with normal anterior mitral valve leaflet motion. Normal tricuspid valve. The pulmonic valve and proximal pulmonary artery branches were not well visualized. 7. The inferior vena cava was not visualized. DOPPLER: No significant valvular abnormalities detected. Abnormal relaxation pattern was noted across the mitral valve leaflets as well as the mitral valve annulus consistent with features of grade 1 left ventricular diastolic dysfunction. IMPRESSION: 1. Normal global left ventricular systolic function with mild concentric left ventricular hypertrophy. There are some features of grade 1 left ventricular diastolic dysfunction manifested by abnormal relaxation. 2. Aortic valve sclerosis without stenosis or aortic regurgitation. 3. Isolated mitral annulus calcification without evidence of mitral regurgitation or mitral stenosis. 4. Possible small pericardial effusion noted anteriorly versus a fat pad.
--- NOTE | 2021-08-03 19:01 | DS.PDOC ---
Discharge Summary General Date of Admission Jul 19, 2021 at 09:47 Date of Discharge 07/30/21 Discharge Summary DISCHARGE DIAGNOSES: 1. herpes simplex virus (HSV) encephalitis and nucleosis and atrophy found on bilateral frontal lobes on MRI of the brain. 2. Jaw tremors and double vision as late sequela of HSV encephalitis. 3. Septic shock, resolved. 4. Catheter-associated urinary tract infection with Proteus and Klebsiella. Completed seven days of IV Zosyn 5. Acute metabolic encephalopathy secondary to septic shock and catheter-associated urinary tract infection, resolved. Back to baseline mentation. 6. Acute kidney injury. resolved 7. Non-ST elevation myocardial infarction secondary to demand mediated ischemia and septic shock. Patient was given aspirin. 8. Benign prostatic hypertrophy (BPH) with chronic obstructive reflux uropathy with chronic Morton catheter and history of CAUTI 9. History of seizure disorder on chronic Keppra and phenantoin. 10. Gastroesophageal reflux disease (GERD). 11. Diarrhea. Gastrointestinal (GI) panel was negative. DISCHARGE MEDICATIONS: SEE BELOW DISCHARGE INSTRUCTIONS: PCP AND NEURO FU 1 WK PERSONAL BANKING ASSISTANT: NEUROLOGIST: DR ARREDONDO HOSPITAL COURSE: 81-y/o male s/p [facility] admission in May 2021 s/p treatment for herpes simplex encephalitis, complicated by generalized tonic clonic seizures, with intravenous acyclovir, short course of Decadron, phenytoin and Keppra, was admitted at [facility] on July 19, 2021 due to septic shock for UTI, s/p levophed, broad spectrum iv abx, and transferred to [facility] after levophed was tapered off. Pt had alteration in his speech and had slight weakness on the left side. CT scan of head:subacute right frontal ischemic stroke.Neurology was consulted. Per Dr. Arredondo, these changes are all residual from his herpes simplex encephalitis without any acute disease. Pt had tremors of the jaw and left hand for the last one month and he had double vision for the last three weeks without any changes acutely in his neurological status. He denied alteration in his speech. He was able to follow all commands and appeared awake, alert and oriented to place, person, time, month, year and name of President. He had no focal weakness on either side of his body. He has on and off neck and back pain. He denied any seizures. Tele: sinus rhythm. Per Neurology recommendations, pt was given Aspirin 81 mg by mouth daily, Continued on phenytoin 200 mg by mouth twice a day and Keppra 500 plus 250 mg daily. pt was discharged in stable condition. DISCHARGE PHYSICAL EXAMINATION: VITAL SIGNS: see below GENERAL: Awake, alert, oriented to himself, place and time. HEENT: Face is symmetric. jaw tremors. Tongue is midline. Uvula is midline. NEUROLOGICAL: Patient's motor function is 4/5 bilateral upper and lower extremities. Gait was not tested. LUNGS: Clear to auscultation without wheezing, rales or rhonchi. HEART: S1, S2. Sinus rhythm. ABDOMEN: Soft, nontender, nondistended. GENITOURINARY: Morton catheter with yellow-colored urine noted. EXTREMITIES: No cyanosis or clubbing. Patient has chronic edema of the left lower extremity 2+. Right lower extremity has trace edema. NEURO: b/l ue/le 5/5/ strength. face symmetric toung and uvula midline jaw tremors. gait not tested. decreased sensation b/l LE. chronic neuropathy b/l feet LABORATORY DATA/MICROBIOLOGY/IMAGING STUDIES: SEE CHART TIME SPENT ON DISCHARGE: 30 MIN. Vital Signs/I&Os Vital Signs Date Time Temp Pulse Resp B/P (MAP) Pulse Ox O2 Delivery O2 Flow Rate FiO2 07/30/21 08:00 97.2 82 18 119/68 (85) 96 Room Air Discharge Medications Scheduled Aspirin (Aspirin EC) 81 Mg Tablet.dr, 81 MG PO QAM Docusate Sodium (Dok) 100 Mg Capsule, 200 MG PO DAILY, (Reported) Gabapentin (Neurontin) 300 Mg Capsule, 300 MG PO BID, (Reported) Levetiracetam (Keppra) 250 Mg Tablet, 250 MG PO QPM, (Reported) Levetiracetam (Keppra) 250 Mg Tablet, 500 MG PO QAM, (Reported) Levofloxacin (Levofloxacin) 750 Mg Tablet, 750 MG PO DAILY@0600 Omeprazole (Omeprazole) 20 Mg Capsule.dr, 20 MG PO DAILY, (Reported) Phenytoin Sodium Extended (Phenytoin Sodium Extended) 100 Mg Capsule, 200 MG PO BID, (Reported) Simvastatin (Simvastatin) 40 Mg Tablet, 40 MG PO DAILY Sulfamethoxazole/Trimethoprim (Sulfamethoxazole-Tmp Ds Tablet) 1 Each Tablet, 2 TAB PO BID Tamsulosin HCl (Flomax) 0.4 Mg Capsule, 0.4 MG PO DAILY, (Reported) Scheduled PRN Acetaminophen (Acetaminophen 8 Hour) 650 Mg Tablet.er, 650 MG PO Q6H PRN for PAIN LEVEL 1-4, (Reported) Zinc Oxide (Desitin) 454 Gm Cream..g., 1 APLCT TOP TID PRN for REDNESS/IRRITATION, (Reported) BUTTOCK AREA Allergies Coded Allergies: No Known Allergies (Verified Allergy, Unknown, 05/13/21) CHUY SEALS MD Aug 03, 2021 18:54
== END 2021-07-30 13:23 | DRG 698 ==
LOC: M ICU 09:47 → EEVIPCON 09:47 → M PCU 07-21 17:29 → M MS5PR 07-22 15:45 → M PCU 07-28 15:45
PROVIDERS: ADMIT Internal Medicine; ATTEND General Practice
DX: T83.518A Infection and inflammatory reaction due to other urinary catheter, initial encounter (principal); G93.41 Metabolic encephalopathy; B10.09 Other human herpesvirus encephalitis; A41.9 Sepsis, unspecified organism; R65.21 Severe sepsis with septic shock; I21.A1 Myocardial infarction type 2; N17.9 Acute kidney failure, unspecified; N39.0 Urinary tract infection, site not specified; C85.90 Non-Hodgkin lymphoma, unspecified, unspecified site; B96.1 Klebsiella pneumoniae [K. pneumoniae] as the cause of diseases classified elsewhere; N40.1 Benign prostatic hyperplasia with lower urinary tract symptoms; G40.909 Epilepsy, unspecified, not intractable, without status epilepticus; K21.9 Gastro-esophageal reflux disease without esophagitis; Z66 Do not resuscitate; R47.1 Dysarthria and anarthria; C45.9 Mesothelioma, unspecified; N13.9 Obstructive and reflux uropathy, unspecified; Z20.822 Contact with and (suspected) exposure to COVID-19; R77.8 Other specified abnormalities of plasma proteins; E78.5 Hyperlipidemia, unspecified; Z79.82 Long term (current) use of aspirin; Z79.899 Other long term (current) drug therapy; R19.7 Diarrhea, unspecified; R13.10 Dysphagia, unspecified